=== PATIENT | male | born 1955 | race Hispanic/Latino ===

== ENCOUNTER 2018-08-30 14:58 | Emergency (ER) | payer OTHER ==
[~2018-08-30] VITALS: Ht 162.6 cm; Wt 90.7 kg
--- OUTSIDE RECORDS SUMMARY | 2018-08-30 15:01 | XMS REPORT | Clinical Summary ---
Author Author DONNY [facility] Address Unknown Phone Unavailable Care Team Providers Care Nutrition Services Associate Name Role Phone Pcp, No PCP Unavailable Allergies No Known Allergies Medications End Date Status Medication Sig Dispensed Refills Start Date Active PROGRAF 1 mg Take 4 720 capsule 3 capsuleIndications: Liver capsules (4 8 replaced by transplant mg total) by ([facility]), Immunosuppression mouth 2 (two) ([facility]) times daily. Active magnesium oxide 500 mg Take 2,000 mg 0 Tab by mouth daily. Active mycophenolate (CELLCEPT) TAKE 2 120 capsule 5 250 mg CAPSULES BY 8 capsuleIndications: Liver MOUTH TWICE replaced by transplant DAILY ([facility]), Immunosuppression ([facility]) 06/14/2018 Discontinued magnesium oxide (MAG-OX) Take 800 mg 0 400 mg tablet by mouth 2 4 (two) times daily. 06/28/2018 Discontinued mycophenolate (CELLCEPT) Take 2 360 capsule 3 250 mg capsules (500 8 capsuleIndications: Liver mg total) by replaced by transplant mouth 2 (two) ([facility]), Immunosuppression times daily. ([facility]) 05/06/2018 Discontinued tacrolimus (PROGRAF) 1 MG Take 4 mg by 0 capsule mouth 2 (two) times daily. 06/14/2018 Discontinued tacrolimus (PROGRAF) 1 MG Take 4 720 capsule 3 capsule capsules (4 8 mg total) by mouth 2 (two) times daily. 06/18/2018 Discontinued magnesium oxide Take by 0 (MAG-OXIDE ORAL) mouth. Active Problems Problem Noted Date Screening for malignant neoplasm 05/06/2018 BMI 35.0-35.9,adult 05/19/2014 Elevated blood pressure 04/28/2013 Last Assessment & Plan: Controlled with medications. Ulcer of lower extremity 04/21/2013 Last Assessment & Plan: Most probably secondary to previous fluid overload/edema/venous stasis. It appears improved, no signs of infection. Continue local wound care for now. Hyperglycemia 04/14/2013 Last Assessment & Plan: Controlled blood sugars. Immunosuppression 04/07/2013 Last Assessment & Plan: On prograf maintenance. Will adjust dose according to level. Autoimmune hepatitis 03/30/2013 Overview: S/p OLT 03/28/13 L ast Assessment & Plan: The patient with a history of AIH, no evidence of recurrence at this time. We will continue to follow LFTs for any evidence of recurrence and will alter meds as needed. 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 Encounters Care Team Description Date Type Specialty 08/18/2018 Hospital Encounter Chapito Gallagher MD Liver replaced by transplant (HCC); Immunosuppression (HCC) 06/28/2018 Refill Transplant Hepatology Cary Jain MD COLONOSCOPY 06/18/2018 Surgery Gastroenterology Jose Baird MD 06/18/2018 Anesthesia Gastroenterology Event Cary Jain MD Screening for malignant neoplasm (Primary Dx) 06/18/2018 Hospital Gastroenterology Encounter Resource, [facility] Phone 06/14/2018 Hospital Pre-Admission Testing Encounter Tia Reese Labs Only (LVM RE: LAB/RX RESULTS; NO MED CHANGES; REPEAT BLD WK X4 MTHS; 09/05/2018; LIVER CLINIC; GGT;) 05/07/2018 Telephone Transplant Hepatology Lesley Henry MD Status post liver transplantation (HCC) (Primary Dx); Immunosuppression (HCC); Autoimmune hepatitis (HCC); Obesity (BMI 30-39.9); Screening for malignant neoplasm 05/06/2018 Follow-Up Transplant HepatLesley Jaquez MD Autoimmune hepatitis (HCC); Immunosuppression (HCC); Status post liver transplantation (HCC) 05/06/2018 Orders Only Transplant HepatLesley Jaquez MD 05/06/2018 Abstract Transplant Hepatology Tia Reese 05/06/2018 Documentation Transplant Hepatology Warren, Kylah M, pot runner Refill 04/12/2018 Telephone Transplant Hepatology Tia Reese Labs Only (SPK W PTN RE: LABA/RX RESULTS; NO MED CHANGES; REPEAT BLD WK X4 MTHS; 05/06/2018; LIVER CLINIC; GGT;) 03/08/2018 Telephone Transplant Hepatology Gustavo Pruitt MD Autoimmune hepatitis (HCC); Immunosuppression (HCC); Status post liver transplantation (HCC) 03/06/2018 Orders Only Transplant Hepatology Tia Reese Labs Only (SPK W PTN RE:LAB/RX RESULTS; NO MED CHANGES; REPEAT BLD WK X3 MTHS; 03/05/2018; CLINIC; GGT;) 12/04/2017 Telephone Transplant Hepatology Tia Reese 12/04/2017 Documentation Transplant Hepatology Gustavo Pruitt MD Autoimmune hepatitis (HCC); Immunosuppression (HCC); Status post liver transplantation (HCC) 12/03/2017 Orders Only Transplant Hepatology Kylah Warren RN 11/15/2017 Abstract Transplant Hepatology Gustavo Pruitt MD Autoimmune hepatitis (HCC); Immunosuppression (HCC); Status post liver transplantation (HCC) 09/03/2017 Orders Only Transplant Hepatology after 08/29/2017 Immunizations Name Dates Previously Given Next Due Influenza TIV (IM) 05/19/2014 Influenza Three-TIV PF 04/09/2015 4+YRS Pneumococcal 01/21/2014 Polysaccharide (Pneumovax) Tdap 01/21/2014 Family History Medical History Relation Name Comments Diabetes Brother Heart disease Father Prostate cancer Father Diabetes Mother Hypertension Mother Cancer Sister Relation Name Status Comments Brother Father Mother Sister Social History Date Tobacco Use Types Packs/Day Years Used Quit: 02/16/2013 Former Smoker Cigarettes 2 45 Smokeless Tobacco: Never Used Tobacco Cessation: Counseling Given: Yes Alcohol Use Drinks/Week oz/Week Comments No Stopped February 2013 Sex Assigned at Date Recorded Not on file Industry Job Start Date Occupation Not on file Not on file Not on file Travel End Travel History Travel Start No recent travel history available. Last Filed Vital Signs Time Taken Vital Sign Reading 06/18/2018 10:15 AM LOTUS NOTES DEVELOPER Blood Pressure 143/94 06/18/2018 10:00 AM LOTUS NOTES DEVELOPER Pulse 71 06/18/2018 10:15 AM LOTUS NOTES DEVELOPER Temperature 37 C (98.6 F) 06/18/2018 10:15 AM LOTUS NOTES DEVELOPER Respiratory Rate 18 06/18/2018 10:00 AM LOTUS NOTES DEVELOPER Oxygen Saturation 97% - Inhaled Oxygen - Concentration 06/18/2018 8:27 AM LOTUS NOTES DEVELOPER Weight 96.8 kg (213 lb 4.8 oz) 06/18/2018 8:27 AM LOTUS NOTES DEVELOPER Height 162.6 cm (5' 4") 06/18/2018 8:27 AM LOTUS NOTES DEVELOPER Body Mass Index 36.61 Plan of Treatment Care Team Description Date Type Specialty 09/05/2018 Orders Only Transplant Hepatology Health Maintenance Due Date Last Done Comments INFLUENZA VACCINE 04/22/2018 04/09/2015 Procedures Comments Procedure Name Priority Date/Time Associated Diagnosis COLONOSCOPY 06/18/2018 Colon cancer screening 10:00 AM LOTUS NOTES DEVELOPER REPORT OF PROCEDURE - 06/18/2018 ENDOSCOPY URL 9:59 AM LOTUS NOTES DEVELOPER CBC W/PLT COUNT & AUTO Routine 05/06/2018 Autoimmune hepatitis DIFFERENTIAL 6:46 AM CDT (HCC) Immunosuppression (HCC) Status post liver transplantation (HCC) CBC W/PLT COUNT & AUTO Routine 05/06/2018 Autoimmune hepatitis DIFFERENTIAL 6:46 AM CDT (HCC) Immunosuppression (HCC) Status post liver transplantation (HCC) TACROLIMUS LEVEL Routine 05/06/2018 Autoimmune hepatitis 6:45 AM CDT (HCC) Immunosuppression (HCC) Status post liver transplantation (HCC) MAGNESIUM Routine 05/06/2018 Autoimmune hepatitis 6:45 AM CDT (HCC) Immunosuppression (HCC) Status post liver transplantation (HCC) COMPREHENSIVE METABOLIC Routine 05/06/2018 Autoimmune hepatitis PANEL 6:45 AM CDT (HCC) Immunosuppression (HCC) Status post liver transplantation (HCC) BILIRUBIN, DIRECT Routine 05/06/2018 Autoimmune hepatitis 6:45 AM CDT (HCC) Immunosuppression (HCC) Status post liver transplantation (HCC) CBC W/PLT COUNT & AUTO Routine 03/06/2018 Autoimmune hepatitis DIFFERENTIAL 6:47 AM CDT (HCC) Immunosuppression (HCC) Status post liver transplantation (HCC) TACROLIMUS LEVEL Routine 03/06/2018 Autoimmune hepatitis 6:47 AM CDT (HCC) Immunosuppression (HCC) Status post liver transplantation (HCC) MAGNESIUM Routine 03/06/2018 Autoimmune hepatitis 6:47 AM CDT (HCC) Immunosuppression (HCC) Status post liver transplantation (HCC) COMPREHENSIVE METABOLIC Routine 03/06/2018 Autoimmune hepatitis PANEL 6:47 AM CDT (HCC) Immunosuppression (HCC) Status post liver transplantation (HCC) CBC W/PLT COUNT & AUTO Routine 03/06/2018 Autoimmune hepatitis DIFFERENTIAL 6:47 AM CDT (HCC) Immunosuppression (HCC) Status post liver transplantation (HCC) BILIRUBIN, DIRECT Routine 03/06/2018 Autoimmune hepatitis 6:47 AM CDT (HCC) Immunosuppression (HCC) Status post liver transplantation (HCC) CBC W/PLT COUNT & AUTO Routine 12/03/2017 Autoimmune hepatitis DIFFERENTIAL 7:02 AM CDT (HCC) Immunosuppression (HCC) Status post liver transplantation (HCC) TACROLIMUS LEVEL Routine 12/03/2017 Autoimmune hepatitis 7:02 AM CDT (HCC) Immunosuppression (HCC) Status post liver transplantation (HCC) MAGNESIUM Routine 12/03/2017 Autoimmune hepatitis 7:02 AM CDT (HCC) Immunosuppression (HCC) Status post liver transplantation (HCC) COMPREHENSIVE METABOLIC Routine 12/03/2017 Autoimmune hepatitis PANEL 7:02 AM CDT (HCC) Immunosuppression (HCC) Status post liver transplantation (HCC) CBC W/PLT COUNT & AUTO Routine 12/03/2017 Autoimmune hepatitis DIFFERENTIAL 7:02 AM CDT (HCC) Immunosuppression (HCC) Status post liver transplantation (HCC) BILIRUBIN, DIRECT Routine 12/03/2017 Autoimmune hepatitis 7:02 AM CDT (HCC) Immunosuppression (HCC) Status post liver transplantation (HCC) CBC W/PLT COUNT & AUTO Routine 09/03/2017 Autoimmune hepatitis DIFFERENTIAL 6:59 AM LOTUS NOTES DEVELOPER (HCC) Immunosuppression (HCC) Status post liver transplantation (HCC) TACROLIMUS LEVEL Routine 09/03/2017 Autoimmune hepatitis 6:59 AM LOTUS NOTES DEVELOPER (HCC) Immunosuppression (HCC) Status post liver transplantation (HCC) MAGNESIUM Routine 09/03/2017 Autoimmune hepatitis 6:59 AM LOTUS NOTES DEVELOPER (HCC) Immunosuppression (HCC) Status post liver transplantation (HCC) COMPREHENSIVE METABOLIC Routine 09/03/2017 Autoimmune hepatitis PANEL 6:59 AM LOTUS NOTES DEVELOPER (HCC) Immunosuppression (HCC) Status post liver transplantation (HCC) CBC W/PLT COUNT & AUTO Routine 09/03/2017 Autoimmune hepatitis DIFFERENTIAL 6:59 AM LOTUS NOTES DEVELOPER (HCC) Immunosuppression (HCC) Status post liver transplantation (HCC) BILIRUBIN, DIRECT Routine 09/03/2017 Autoimmune hepatitis 6:59 AM LOTUS NOTES DEVELOPER (HCC) Immunosuppression (HCC) Status post liver transplantation (HCC) after 08/29/2017 Results * REPORT OF PROCEDURE - ENDOSCOPY URL (06/18/2018 9:59 AM LOTUS NOTES DEVELOPER) Narrative Performed At * CBC with platelet count + automated diff (05/06/2018 6:46 AM CDT) Only the most recent of 4 results within the time period is included. WBC 6.5 3.5 - 10.5 K/L [facility] RBC 5.11 4.63 - 6.08 M/L [facility] Hemoglobin 14.8 13.7 - 17.5 GM/DL [facility] Hematocrit 46.9 40.1 - 51.0 % [facility] MCV 91.8 79.0 - 92.2 fL [facility] MCH 29.0 25.7 - 32.2 pg [facility] MCHC 31.6 (L) 32.3 - 36.5 GM/DL [facility] RDW 14.3 11.6 - 14.4 % [facility] Platelets 282 150 - 450 K/CU MM [facility] MPV 10.7 9.4 - 12.4 fL [facility] nRBC 0 0 - 0 /100 WBC [facility] % Neutros 60 % [facility] % Lymphs 30 % [facility] % Monos 8 % [facility] % Eos 1 % [facility] % Baso 1 % [facility] # Neutros 3.89 1.78 - 5.38 K/L [facility] # Lymphs 1.92 1.32 - 3.57 K/L [facility] # Monos 0.54 0.30 - 0.82 K/L [facility] # Eos 0.06 0.04 - 0.54 K/L [facility] # Baso 0.07 0.01 - 0.08 K/L [facility] Immature 1 0 - 1 % [facility] Granulocytes-[facility] Specimen Blood Performing Organization Address City/[facility]/Zipcode Phone Number [address] * Tacrolimus level (05/06/2018 6:45 AM CDT) Only the most recent of 4 results within the time period is included. Tacrolimus Lvl 7.7 (L) 10.0 - 20.0 ng/mL [facility] Specimen Blood Performing Organization Address City/State/Zipcode Phone Number [address] [address] [phone] [place] [address] * Magnesium (05/06/2018 6:45 AM CDT) Only the most recent of 4 results within the time period is included. Magnesium 1.6 1.6 - 2.6 mg/dL [facility] Specimen Blood Performing Organization Address City/State/Zipcode Phone Number [address] [address] [facility] * Bilirubin, direct (05/06/2018 6:45 AM CDT) Only the most recent of 4 results within the time period is included. Bilirubin, Direct 0.2 0.1 - 0.5 mg/dL [facility] Specimen Blood Performing Organization Address City/State/Zipcode Phone Number [facility] [address] [place] [address] [facility] * Comprehensive metabolic panel (05/06/2018 6:45 AM CDT) Only the most recent of 4 results within the time period is included. Protein, Total 8.4 (H) 6.0 - 8.3 gm/dL [facility] Albumin 4.5 3.5 - 5.0 g/dL [facility] Alkaline Phosphatase 74 40 - 150 U/L [facility] Total Bilirubin 0.5 0.2 - 1.2 mg/dL [facility] Sodium 138 136 - 145 meq/L [facility] Potassium 4.1 3.5 - 5.1 meq/L [facility] Chloride 105 98 - 107 meq/L [facility] CO2 23 22 - 29 meq/L [facility] BUN 15 7 - 21 mg/dL [facility] Creatinine 1.09 0.57 - 1.25 mg/dL [facility] Glucose 96 70 - 105 mg/dL [facility] Calcium 10.0 8.4 - 10.2 mg/dL [facility] AST 23 5 - 34 U/L [facility] ALT 39 6 - 55 U/L [facility] EGFR 68Comment: ESTIMATED GFR IS mL/min/1.[address] [facility] NOT ACCURATE CREATININE [facility] CLEARANCE IN PREDICTING GLOMERULAR FILTRATION RATE. ESTIMATED GFR IS NOT APPLICABLE FOR DIALYSIS PATIENTS. Specimen Blood Performing Organization Address City/State/Zipcode Phone Number [facility] [address] [place] [address] [facility] after 08/29/2017 Insurance Payer Benefit Subscriber ID Type Phone Address Plan / Group [employer] - MGD CARE CIGNA xxxxxxxxxxx HMO/POS HMO/POS/OP EN ACCESS Advance Directives For more information, please contact: [place] [id number] [place] [address] Date Inactivated Comments Code Status Date Activated 03/28/2013 11:02 AM All possible means of support, including: cardiac massage, mechanical ventilation, and defibrillation will be used to support life. Code ONE 03/19/2013 12:29 AM
--- OUTSIDE RECORDS SUMMARY | 2018-08-30 15:01 | XMS REPORT | Clinical Summary ---
Author Author [facility] Address Unknown Phone Unavailable Care Team Providers Care [facility]ilion Cutter Name Role Phone Roxanne Arias MD PCP Allergies No Known Allergies Medications End Date Status Medication Sig Dispensed Refills Start Date Active PROGRAF 1 mg capsule 0 7 Active mycophenolate (CELLCEPT) 0 250 mg capsule 7 Active magnesium 30 mg tablet Take 30 mg by 0 mouth 2 (two) times a day. 10/15/2017 Discontinued ergocalciferol (VITAMIN Take 50,000 0 D2) 50,000 unit capsule Units by mouth once a week. Active Problems Problem Noted Date Vitamin D deficiency 10/15/2017 Overview: Now on vit D OTC. L ast Assessment & Plan: Recheck at annual and get bone density given immunosuppression. Pulmonary nodule 04/13/2017 Overview: Liver team told patient no longer ordering imaging and per PCP; had CT chest showing IMPRESSION: Mild changes of COPD. 3.4 mm x 1.7 mm benign-appearing pleural parenchymal nodule right upper lobe. Mild benign bilateral pleural thickening. Atherosclerosis No incidental findings - no further evaluation needed. L ast Assessment & Plan: Repeat CT chest and refer to pulmonary if necessary. Borderline diabetes mellitus 01/21/2014 Overview: Last A1c was 6.1 down to 5.9 Weight is elevated; not controlling diet well L ast Assessment & Plan: Recheck in 6 months - focus on diet and exercise. White coat syndrome with high blood pressure but without hypertension 04/28/2013 Overview: BP elevated at visit however patient brought log of ambulatory bp readings which are all normal in the 110/70's. He has no symptoms of chest pain or SOB. BP in office initially always high. Patient very nervous today. Continues to check at home and highest reading he gets is 130/80. Rechecked bp manually -- 135/80 (initial bp 157/102) L ast Assessment & Plan: Continue to keep log and monitor. Immunosuppression 04/07/2013 Overview: On prograf maintenance. Per Hepatology. Autoimmune hepatitis 03/30/2013 Overview: S/p OLT 03/28/13 The patient with a history of AIH, no evidence of recurrence at this time. [facility] Hepatology managing immunosuppresion. History of liver transplant 03/28/2013 Overview: Excellent graft function per transplant team; patient requesting u/s with dopplers for liver surveillance. No complaints. L ast Assessment & Plan: U/s ordered for surveillance. Encounters Care Team Description Date Type Specialty Araseli Vieyra MA 08/29/2018 Telephone Access Roxanne Arias MD 08/19/2018 Telephone Family Medicine Jamin Kong MD BPH with obstruction/lower urinary tract symptoms (Primary Dx) 05/22/2018 Office Visit Urology Roxanne Arias MD Annual physical exam (Primary Dx); Need for influenza vaccination; Pulmonary nodule; Screen for colon cancer; Encounter for vision screening 04/17/2018 Office Visit Internal Medicine Jamin Kong MD Erectile dysfunction, unspecified erectile dysfunction type (Primary Dx) 10/24/2017 Office Visit Urology Roxanne Arias MD Borderline diabetes mellitus (Primary Dx); White coat syndrome with high blood pressure but without hypertension; Vitamin D deficiency 10/15/2017 Office Visit Internal Medicine after 08/29/2017 Immunizations Name Dates Previously Given Next Due FLUBLOK QUAD PF 04/17/2018 Influenza (IM) 04/09/2015 Preservative Free Influenza Trivalent 05/19/2014 Pneumococcal 01/21/2014 Polysaccharide Tdap 01/21/2014 Family History Medical History Relation Name Comments Heart disease Father Prostate cancer Father Diabetes Mother Hypertension Mother Relation Name Status Comments Father Mother Social History Date Tobacco Use Types Packs/Day Years Used Former Smoker Smokeless Tobacco: Never Used Alcohol Use Drinks/Week oz/Week Comments No Sex Assigned at Date Recorded Not on file Industry Job Start Date Occupation Not on file Not on file Not on file Travel End Travel History Travel Start No recent travel history available. Last Filed Vital Signs Time Taken Vital Sign Reading 04/17/2018 8:22 AM CDT Blood Pressure 150/100 04/17/2018 8:22 AM CDT Pulse 72 - Temperature - 04/17/2018 8:22 AM CDT Respiratory Rate 16 04/17/2018 8:22 AM CDT Oxygen Saturation 97% - Inhaled Oxygen - Concentration 04/17/2018 8:22 AM CDT Weight 97.1 kg (214 lb) 04/17/2018 8:22 AM CDT Height 162.6 cm (5' 4") 04/17/2018 8:22 AM CDT Body Mass Index 36.73 Plan of Treatment Care Team Description Date Type Specialty Roxanne Arias MD [address] [facility] [address] [place] [address] 09/02/2018 Office Visit Internal Medicine Roxanne Arias MD [address] [facility] [address] [place] [address] 10/16/2018 Office Visit Internal Medicine Jamin Kong MD [address] [facility] [address] [place] [address] 05/21/2019 Office Visit Urology Health Maintenance Due Date Last Done Comments COLON CANCER SCREENING 2004 SHINGLES VACCINES ( of 2004 2) INFLUENZA VACCINE Completed 04/17/2018, 05/19/2014 Procedures Comments Procedure Name Priority Date/Time Associated Diagnosis PSA, TOTAL AND FREE Routine 05/22/2018 BPH with 11:07 AM CDT obstruction/lower urinary tract symptoms ECG 12-LEAD Routine 04/17/2018 Annual physical exam 7:39 AM CDT after 08/29/2017 Results * PSA, total and free (05/22/2018 11:07 AM CDT) PSA 4.1 (H) 0.0 - 4.0 ng/mL [facility] Comment: Felisa ECLIA methodology. According to the [employer], Serum PSA should decrease and remain at undetectable levels after radical prostatectomy. The AUA defines biochemical recurrence as an initial PSA value 0.2 ng/mL or greater followed by a subsequent confirmatory PSA value 0.2 ng/mL or greater. Values obtained with different assay methods or kits cannot be used interchangeably. Results cannot be interpreted as absolute evidence of the presence or absence of malignant disease. PSA, free 1.16Comment: Felisa ECLIA N/A ng/mL [facility] methodology. PSA, free percent 28.3 % [facility] Comment: The table below lists the probability of prostate cancer for men with non-suspicious ANNE MARIE results and total PSA between 4 and 10 ng/mL, by patient age (Dhruv et al, ISIAH 1998, 279:1542). % Free PSA 50-64 yr65-75 yr 0.00-10.00% 56% 55% 10.01-15.00%24 % 35% 15.01-20.00%17 % 23% 20.01-25.00%10 % 20% >25.00% 5% 9% Please note:Dhruv et al did not make specific re commendations regarding the use of pe rcent free PSA for any other population of men. Specimen Blood Narrative Performed At Performed at: - [facility] [address] [place], [id number] Marine Operations Coordinator: Ayan Escalona MD, Phone:[phone] Performing Organization Address City/[facility] Phone Number [facility] * ECG 12 lead (04/17/2018 7:39 AM CDT) Ventricular rate 63 [facility] Atrial rate 63 [facility] SD interval 146 [facility] QRSD interval 88 [facility] QT interval 392 [facility] QTC interval 401 [facility] P axis 1 20 [facility] QRS axis 1 46 [facility] T wave axis 47 [facility] EKG impression Normal sinus rhythm-Normal [facility] ECG-No previous ECGs available- Performing Organization Address [facility] Phone Number [facility] [address] [place] [address] after 08/29/2017 Insurance Payer Benefit Subscriber ID Type Phone Address Plan / Group PADMINI [place] OPEN xxxxxxxxxxx HMO ACCESS/NET WORK Advance Directives Patient has advance care planning documents on file. For more information, pleas e contact: Stiven Bowers [address] [place] [address]
--- OUTSIDE RECORDS SUMMARY | 2018-08-30 15:02 | XMS REPORT ---
[facility] Address Unknown Phone Unavailable Care Team Providers Care Meter Changes Records Clerk Name Role Phone MIMIMIGUEL ANGEL EUCEDATRISTON LEYVA Unavailable Unavailable SAMARA RAMOS Unavailable Unavailable Edward SANCHEZ Unavailable Unavailable JEREMIAH GUAMAN Unavailable Unavailable Payers Payer Name Policy Type Policy Number Effective Date Expiration Date Problems This patient has no known problems. Allergies, Adverse Reactions, Alerts Allergy Name Allergy Type Status Severity Reaction(s) Onset Date Inactive Date Treating Clinician Comments No Known Allergies DA Active U 2018-08-23 00:00:00 No Known Allergies DA Active U 2018-08-18 00:00:00 Medications This patient has no known medications. Results Test Description Test Time Test Comments Text Results Atomic Results Result Comments GLUBED 2018-08-20 17:05:00 GLUBED (test code=GLUBED) 112 mg/dL 74-106 Performed by certified tin whiz machine operator at [facility] [id number] 17:05:00* Test Item Value Reference Range Comments GLUBED (test code=GLUBED) 92 mg/dL 74-106 Performed by certified tin whiz machine operator at [facility] [id number] 17:05:00* Test Item Value Reference Range Comments GLUBED (test code=GLUBED) 60 mg/dL 74-106 Performed by certified tin whiz machine operator at [facility] BASIC METABOLIC [id number] 07:12:00* Test Item Value Reference Range Comments SODIUM (test code=NA) 144 mmol/L 136-145 POTASSIUM (test code=K) 3.5 mmol/L 3.5-5.1 CHLORIDE (test code=CL) 112.0 mmol/L 98-107 CARBON DIOXIDE (test code=CO2) 23.0 mmol/L 21-32 ANION GAP (test code=GAP) 12.5 10-20 GLUCOSE (test code=GLU) 88 mg/dL 74-106 BLOOD UREA NITROGEN (test code=BUN) 9 mg/dL 7-18 GLOMERULAR FILTRATION RATE (test code=GFR) > 60 mL/min >=60 Estimated GFR by using Modified MDRD formula.Chronic kidney disease is defined as either kidney damageor GFR <60 mL/min/1.73 m2 for >3 months. CREATININE (test code=CREAT) 0.90 mg/dL 0.7-1.3 BUN/CREATININE RATIO (test code=BUN/CREA) 10.1 10-20 CALCIUM (test code=CA) 8.4 mg/dL 8.5-10.1 CBC W/AUTO [id number] 07:01:00* Test Item Value Reference Range Comments WHITE BLOOD CELL (test code=WBC) 7.4 K/mm3 4.5-12.5 RED BLOOD CELL (test code=RBC) 4.20 mill/mm3 4.0-5.8 HEMOGLOBIN (test code=HGB) 12.2 gram/dL 13.0-17.5 HEMATOCRIT (test code=HCT) 39.7 % 42.0-52.0 MEAN CELL VOLUME (test code=MCV) 94.5 fL 80-98 MEAN CELL HGB (test code=MCH) 29.0 picogram 27.0-33.0 MEAN CELL HGB CONCETRATION (test code=MCHC) 30.7 gram/dL 33.0-36.0 RED CELL DISTRIBUTION WIDTH (test code=RDW) 14.8 % 11.6-16.2 RED CELL DISTRIBUTION WIDTH SD (test code=RDW-SD) 51.8 fL 37.0-51.0 PLATELET COUNT (test code=PLT) 218 K/mm3 150-450 MEAN PLATELET VOLUME (test code=MPV) 10.5 fL 6.7-11.0 NEUTROPHIL % (test code=NT%) 65.5 % 39.0-69.0 IMMATURE GRANULOCYTE % (test code=IG%) 0.3 % 0.0-5.0 LYMPHOCYTE % (test code=LY%) 24.7 % 25.0-55.0 MONOCYTE % (test code=MO%) 8.6 % 0.0-10.0 EOSINOPHIL % (test code=EO%) 0.5 % 0.0-5.0 BASOPHIL % (test code=BA%) 0.4 % 0.0-1.0 NUCLEATED RBC % (test code=NRBC%) 0.0 % 0-0 NEUTROPHIL # (test code=NT#) 4.86 K/mm3 1.8-7.7 IMMATURE GRANULOCYTE # (test code=IG#) 0.02 x10 3/uL 0-0.03 LYMPHOCYTE # (test code=LY#) 1.83 K/mm3 1.0-5.0 MONOCYTE # (test code=MO#) 0.64 K/mm3 0-0.8 EOSINOPHIL # (test code=EO#) 0.04 K/mm3 0.0-0.5 BASOPHIL # (test code=BA#) 0.03 K/mm3 0.0-0.2 NUCLEATED RBC # (test code=NRBC#) 0.00 K/mm3 0.0-0.1 MANUAL DIFF REQUIRED (test code=MDIFF) NO - CT HEAD/BRAIN W/O [id number] 06:59:00 Name: SOL MONTEMAYOR [facility] : 1955 Age/S: 62 / M [address] [facility] Unit #: [id number] Loc: [place] [address] Phys: Juliano Powell MD Acct: [id number] Dis Date: Status: ADM IN PHONE #: [phone] Exam Date: 08/20/2018 0440 FAX #: [phone] Reason: f/u hemorrhage EXAMS: CPT CODE: [id number] CT HEAD/BRAIN W/O CONT 09445 REASON FOR EXAM: f/u hemorrhage EXAM ORDER DATE: 08/20/2018 5:00 AM Ordering M.DMaddie: Juliano Powell MD PROCEDURE: - CT HEAD/BRAIN W/O CONT COMPARISON: 08/19/2018 FINDINGS: CT images of the brain were obtained without IV contrast. Dose reduction techniques were applied. Slight interval decrease in the left-sided parenchymal hemorrhages involving the left temporal and left parietal lobes. No evidence of midline shift or mass effect. No evidence of new hemorrhage IMPRESSION: Slight interval decrease in the size of the left-sided intraparenchymal hemorrhage. at 0659 Reported and signed by: Eliel Dejesus M.D. CC: Joey Schroeder MD; Juliano Powell MD Technologist:ALICIA CASTRO RT CTDI: DLP: Trnscb Date/Time: 08/20/2018 (0659) [email or web address] Orig Print D/T: S: 08/20/2018 (0702) CTDI: DLP: PAGE 1 Signed Report BASIC METABOLIC PANEL 2018-08-20 06:57:00* Test Item Value Reference Range Comments SODIUM (test code=NA) 144 mmol/L 136-145 POTASSIUM (test code=K) 3.5 mmol/L 3.5-5.1 CHLORIDE (test code=CL) 112.0 mmol/L 98-107 CARBON DIOXIDE (test code=CO2) mmol/L 21-32 ANION GAP (test code=GAP) 10-20 GLUCOSE (test code=GLU) mg/dL 74-106 BLOOD UREA NITROGEN (test code=BUN) mg/dL 7-18 GLOMERULAR FILTRATION RATE (test code=GFR) mL/min >=60 CREATININE (test code=CREAT) mg/dL 0.7-1.3 BUN/CREATININE RATIO (test code=BUN/CREA) 10-20 CALCIUM (test code=CA) mg/dL 8.5-10.1 ARTERIAL BLOOD [id number] 08:25:00* Test Item Value Reference Range Comments ARTERIAL BLOOD GAS PH (test code=PHA) 7.37 7.35-7.45 ARTERIAL BLOOD GAS PCO2 (test code=PCO2A) 37.5 mm Hg 35-45 ARTERIAL BLOOD GAS PO2 (test code=PO2A) 404.6 mmHg 80-100 BICARBONATE TOTAL HCO3 (test code=HCO3) 21.3 mmol/L 23.0-27.0 BASE EXCESS (test code=MIRANDA) -3.4 mmol/L -3.0-5.0 Results called to and read back by dr landaverde 08:22 - 08/19/2018; by kendy ABG O2 SATURATION (test code=SATA) 99.1 % 90.0-98.0 ABG TYPE (test code=TYPEA) Arterial FIO2 (test code=FIO2A) 40.0 ABG VENT MODE (test code=MODEA) CPAP ABG VENT RESP RATE (test code=RRA) 18.0 per min ABG PRESSURE SUPPORT (test code=PSABG) 8 cmH2O ABG SITE (test code=SITEA) Rt BRACHIAL ARTERY HEMATOCRIT (test code=HCT/ABG) 40 % 42-52 TOTAL HGB (test code=THB) 13.5 gram/dL 13.0-17.5 HGB O2 SAT (test code=HBOSAT) 98.3 % 94.00-98.00 CARBOXYHEMOGLOBIN (test code=HOHGBT) 0.3 %totalHg 0.5-1.5 Results called to and read back by dr landaverde 08:22 - 08/19/2018; by kendy METHEMOGLOBIN (test code=METHGB) 0.5 % 0.0-1.50 O2 CONTENT (test code=O2CT) 19.7 % vol 18.0-22.0 ARTERIAL BLOOD [id number] 07:45:00* Test Item Value Reference Range Comments ARTERIAL BLOOD GAS PH (test code=PHA) 7.40 7.35-7.45 ARTERIAL BLOOD GAS PCO2 (test code=PCO2A) 35.3 mm Hg 35-45 ARTERIAL BLOOD GAS PO2 (test code=PO2A) 142.3 mmHg 80-100 BICARBONATE TOTAL HCO3 (test code=HCO3) 21.6 mmol/L 23.0-27.0 BASE EXCESS (test code=MIRANDA) -2.5 mmol/L -3.0-5.0 ABG O2 SATURATION (test code=SATA) 98.4 % 90.0-98.0 ABG TYPE (test code=TYPEA) Arterial FIO2 (test code=FIO2A) 50.0 ABG VENT MODE (test code=MODEA) Assist Control ABG VENT RESP RATE (test code=RRA) 16.0 per min ABG TIDAL VOLUME (test code=TVA) 500.0 mL ABG PEEP (test code=PEEPA) 5.0 cmH2O ABG SITE (test code=SITEA) Lt RADIAL ARTERY MODIFIED ALLENS (test code=MODALL) Yes CHECK PERFORMED HEMATOCRIT (test code=HCT/ABG) 40 % 42-52 TOTAL HGB (test code=THB) 13.6 gram/dL 13.0-17.5 HGB O2 SAT (test code=HBOSAT) 97.6 % 94.00-98.00 CARBOXYHEMOGLOBIN (test code=HOHGBT) 0.3 %totalHg 0.5-1.5 Results called to and read back by narendra 05:15 - 08/19/2018; by Ilene Dickens METHEMOGLOBIN (test code=METHGB) 0.5 % 0.0-1.50 O2 CONTENT (test code=O2CT) 18.9 % vol 18.0-22.0 - CT HEAD/BRAIN W/O [id number] 07:15:00 Name: SOL MONTEMAYOR [facility] : 1955 Age/S: 62 / M [address] [facility] Unit #: [id number] Loc: [place] [address] Phys: Mami Vegas MD Acct: [id number] Dis Date: Status: ADM IN PHONE #: [phone] Exam Date: 08/19/2018 0440 FAX #: [phone] Reason: FOLLOW UP TO POST HEMORRHAGE EXAMS: CPT CODE: [id number] CT HEAD/BRAIN W/O CONT 51426 REASON FOR EXAM: FOLLOW UP TO POST HEMORRHAGE EXAM ORDER DATE: 08/19/2018 5:00 AM Ordering M.DMaddie: Mami Vegas MD PROCEDURE: - CT HEAD/BRAIN W/O CONT COMPARISON: 08/18/2018 FINDINGS: CT images of the brain were obtained without IV contrast. Dose reduction techniques were applied. Stable appearance of the left sided intraparenchymal hemorrhage within the left temporal and parietal lobes. The degree previously seen intraparenchymal hemorrhages are grossly unchanged with the largest located in the inferior left temporal lobe measuring 2.2 cm. No evidence of new hemorrhage. No evidence of midline shifting or mass effect IMPRESSION: Stable appearance of the left-sided temporoparietal multifocal intraparenchymal hemorrhages. at 0715 Reported and signed by: Eliel Dejesus M.D. CC: Mami Vegas MD; Joey Schroeder MD Technologist:BROWN GASTON CTDI: DLP: Trnscb Date/Time: 08/19/2018 (0715) OrvilleL Orig Print D/T: S: 08/19/2018 (0718) CTDI: DLP: PAGE 1 Signed Report COMPREHENSIVE METABOLIC [id number] 06:58:00* Test Item Value Reference Range Comments SODIUM (test code=NA) 143 mmol/L 136-145 POTASSIUM (test code=K) 3.4 mmol/L 3.5-5.1 CHLORIDE (test code=CL) 111.0 mmol/L 98-107 CARBON DIOXIDE (test code=CO2) 23.0 mmol/L 21-32 ANION GAP (test code=GAP) 12.4 10-20 GLUCOSE (test code=GLU) 93 mg/dL 74-106 BLOOD UREA NITROGEN (test code=BUN) 11 mg/dL 7-18 GLOMERULAR FILTRATION RATE (test code=GFR) > 60 mL/min >=60 Estimated GFR by using Modified MDRD formula.Chronic kidney disease is defined as either kidney damageor GFR <60 mL/min/1.73 m2 for >3 months. CREATININE (test code=CREAT) 1.10 mg/dL 0.7-1.3 BUN/CREATININE RATIO (test code=BUN/CREA) 9.7 10-20 TOTAL PROTEIN (test code=PROT) 7.4 gram/dL 6.4-8.2 ALBUMIN (test code=ALB) 3.5 g/dL 3.4-5.0 GLOBULIN (test code=GLOB) 3.9 gram/dL 2.7-4.2 ALBUMIN/GLOBULIN RATIO (test code=A/G) 0.9 0.75-1.50 CALCIUM (test code=CA) 8.4 mg/dL 8.5-10.1 BILIRUBIN TOTAL (test code=BILT) 0.40 mg/dL 0.0-1.0 SGOT/AST (test code=AST) 25 IUnit/L 15-37 SGPT/ALT (test code=ALT) 35 IUnit/L 12-78 ALKALINE PHOSPHATASE TOTAL (test code=ALKP) 70 IUnit/L 45-117 Note change in reference range due to change in reagent. LIPID PROFILE (CORONARY RISK)2018-08-19 06:58:00* Test Item Value Reference Range Comments TRIGLYCERIDES (test code=TRIG) 168 mg/dL 20-150 CHOLESTEROL (test code=CHOL) 144 mg/dL 0-200 CHOLESTEROL/HDL RATIO (test code=CHOLHDL) 4.0 RATIO 0-4.9 RISK ASSOCIATED WITH CHOL/HDL RATIOS: Risk Male Female1/2 AVERAGE 3.43 3.27AVERAGE 4.97 4.442X AVERAGE 9.55 7.053X AVERAGE 23.39 11.04 REFERENCE VALUE IS RELATED TO RISK LEVELS ASRECOMMENDED BY THE ALPHONSO. HEART, LUNG, AND BLOOD INST. HDL CHOLESTEROL (test code=HDL) 34 mg/dL 40-60 LIPOPROTEIN LDL (test code=LDL) 95 mg/dL 100-129 Reference Interval: mg/dL mmol/L Optimal <100 <2.6Near/above optimal 100-129 2.6- 3.3Borderline High 130-159 3.4-4.1High 160-189 4.1-4.9Very High >=190 >=4.9=========This LDL result is a direct measurement.========= [id number] 06:58:00* Test Item Value Reference Range Comments PHOSPHORUS (test code=PHOS) 2.6 mg/dL 2.5-4.9 [id number] 06:58:00* Test Item Value Reference Range Comments MAGNESIUM (test code=MAG) 2.0 mg/dL 1.8-2.4 - XR CHEST 1 [id number] 06:56:00 FAX: Joey Schroeder MD [place]: B St: ADM FAX: Carol Rodrigues MD [phone] Name: SOL MONTEMAYOR [facility] : 1955 Age/S: 62/M [address] [facility] Unit #: [id number] Loc: [address] [address] Phys: Carol Rodrigues MD Acct: [id number] Dis Date: Status: ADM IN PHONE #: [phone] Exam Date: 08/19/2018 0545 FAX #: [phone] Reason: CHEST PAIN EXAMS: CPT CODE: [id number] XR CHEST 1 V 10646 REASON FOR EXAM: CHEST PAIN EXAM ORDER DATE: 08/19/2018 6:00 AM Ordering Walter: Carol Rodrigues MD PROCEDURE: - XR CHEST 1 V COMPARISON: 08/18/2018 FINDINGS: Portable AP frontal view of the chest obtained at 5:46 AM shows the heart size is minimally enlarged. Stable appearance of the ET tube. Pulmonary vasculatures are unremarkable. The OG tube is in the stomach IMPRESSION: Patchy atelectasis at the left base. at 0656 Reported and signed by: Eliel Dejesus M.D. CC: Joey Schroeder MD; Carol Rodrigues MD Technologist: FABRICIO Fernandez Trnutrd Date/Time/By: 08/19/2018 (0656) : By: Jaskaran Orig Print D/T: S: 08/19/2018 (0659) PAGE 1 Signed Report COMPREHENSIVE METABOLIC [id number] 06:51:00* Test Item Value Reference Range Comments SODIUM (test code=NA) 143 mmol/L 136-145 POTASSIUM (test code=K) 3.4 mmol/L 3.5-5.1 CHLORIDE (test code=CL) 111.0 mmol/L 98-107 CARBON DIOXIDE (test code=CO2) mmol/L 21-32 ANION GAP (test code=GAP) 10-20 GLUCOSE (test code=GLU) mg/dL 74-106 BLOOD UREA NITROGEN (test code=BUN) mg/dL 7-18 GLOMERULAR FILTRATION RATE (test code=GFR) mL/min >=60 CREATININE (test code=CREAT) mg/dL 0.7-1.3 BUN/CREATININE RATIO (test code=BUN/CREA) 10-20 TOTAL PROTEIN (test code=PROT) gram/dL 6.4-8.2 ALBUMIN (test code=ALB) g/dL 3.4-5.0 GLOBULIN (test code=GLOB) gram/dL 2.7-4.2 ALBUMIN/GLOBULIN RATIO (test code=A/G) 0.75-1.50 CALCIUM (test code=CA) mg/dL 8.5-10.1 BILIRUBIN TOTAL (test code=BILT) mg/dL 0.0-1.0 SGOT/AST (test code=AST) IUnit/L 15-37 SGPT/ALT (test code=ALT) IUnit/L 12-78 ALKALINE PHOSPHATASE TOTAL (test code=ALKP) IUnit/L 45-117 LIPID PROFILE (CORONARY RISK)2018-08-19 06:51:00* Test Item Value Reference Range Comments TRIGLYCERIDES (test code=TRIG) mg/dL 20-150 CHOLESTEROL (test code=CHOL) mg/dL 0-200 CHOLESTEROL/HDL RATIO (test code=CHOLHDL) RATIO 0-4.9 HDL CHOLESTEROL (test code=HDL) mg/dL 40-60 LIPOPROTEIN LDL (test code=LDL) mg/dL 100-129 [id number] 06:51:00* Test Item Value Reference Range Comments PHOSPHORUS (test code=PHOS) mg/dL 2.5-4.9 [id number] 06:51:00* Test Item Value Reference Range Comments MAGNESIUM (test code=MAG) mg/dL 1.8-2.4 CBC W/AUTO [id number] 06:22:00* Test Item Value Reference Range Comments WHITE BLOOD CELL (test code=WBC) 7.8 K/mm3 4.5-12.5 RED BLOOD CELL (test code=RBC) 4.40 mill/mm3 4.0-5.8 HEMOGLOBIN (test code=HGB) 12.9 gram/dL 13.0-17.5 HEMATOCRIT (test code=HCT) 40.6 % 42.0-52.0 MEAN CELL VOLUME (test code=MCV) 92.3 fL 80-98 MEAN CELL HGB (test code=MCH) 29.3 picogram 27.0-33.0 MEAN CELL HGB CONCETRATION (test code=MCHC) 31.8 gram/dL 33.0-36.0 RED CELL DISTRIBUTION WIDTH (test code=RDW) 14.6 % 11.6-16.2 RED CELL DISTRIBUTION WIDTH SD (test code=RDW-SD) 49.1 fL 37.0-51.0 PLATELET COUNT (test code=PLT) 219 K/mm3 150-450 MEAN PLATELET VOLUME (test code=MPV) 10.6 fL 6.7-11.0 NEUTROPHIL % (test code=NT%) 70.4 % 39.0-69.0 IMMATURE GRANULOCYTE % (test code=IG%) 0.1 % 0.0-5.0 LYMPHOCYTE % (test code=LY%) 20.3 % 25.0-55.0 MONOCYTE % (test code=MO%) 8.4 % 0.0-10.0 EOSINOPHIL % (test code=EO%) 0.5 % 0.0-5.0 BASOPHIL % (test code=BA%) 0.3 % 0.0-1.0 NUCLEATED RBC % (test code=NRBC%) 0.0 % 0-0 NEUTROPHIL # (test code=NT#) 5.48 K/mm3 1.8-7.7 IMMATURE GRANULOCYTE # (test code=IG#) 0.01 x10 3/uL 0-0.03 LYMPHOCYTE # (test code=LY#) 1.58 K/mm3 1.0-5.0 MONOCYTE # (test code=MO#) 0.65 K/mm3 0-0.8 EOSINOPHIL # (test code=EO#) 0.04 K/mm3 0.0-0.5 BASOPHIL # (test code=BA#) 0.02 K/mm3 0.0-0.2 NUCLEATED RBC # (test code=NRBC#) 0.00 K/mm3 0.0-0.1 [id number] 22:23:00* Test Item Value Reference Range Comments FIBRINOGEN (test code=FIB) 161 mg/dL 200-400 - CT HEAD/BRAIN W/O [id number] 19:10:00 Name: SOL MONTEMAYOR [facility] : 1955 Age/S: 62 / M [address] #: [id number] Loc: [place] [address] Phys: Mami Vegas MD Acct: [id number] Dis Date: Status: ADM IN PHONE #: [phone] Exam Date: 08/18/2018 184 FAX #: [phone] Reason: stroke EXAMS: CPT CODE: [id number] CT HEAD/BRAIN W/O CONT 81818 HISTORY: stroke TECHNIQUE: Noncontrast 2.[address] of the head. Examination acquired within 24 hours of arrival. Automated exposure control for dose reduction. COMPARISON: Noncontrast CT brain, CT angiogram of the head and neck, and noncontrast MR of the brain performed earlier today. FINDINGS: There has been marked increase in size in the hemorrhage in the left parahippocampal gyrus. Previously this hemorrhage measured 9 mm but on the present exam measures up to 25 mm. There is another hemorrhagic area adjacent to the left optic radiation (series 3 image 38) which measures 13 mm which is increased from the previous measurement of 5 mm. Hemorrhagic area in the left occipital lobe (series 3 image 49) has increased from 7 mm previously up to 11 mm on the present study. There is a new hemorrhagic area in the left frontoparietal region (series 3 image 50) which measures 22 mm in size. IMPRESSION: Worsening intraparenchymal hemorrhage throughout the left cerebral hemisphere as described above. Additionally there is a new area of hemorrhage in the left frontoparietal region. at 1910 Reported and signed by: Zia Ceballos MD CC: Mami Vegas MD; Joey Schroeder MD Technologist:Blank Meneses RT(R),CT CTDI: DLP: Trnscb Date/Time: 08/18/2018 (1909) [email or web address] Orig Print D/T: S: 08/18/2018 (1912) CTDI: DLP: PAGE 1 Signed Report - MRI BRAIN W/O [id number] 18:45:00 FAX: Joey Schroeder MD [place]: St: ADM Name: SOL PORTILLO [facility] : [birth year] Age/S: 62/M [address] [facility] Unit #: [id number] Loc: [address] [address] Phys: Joey Schroeder MD Acct: [id number] Dis Date: Status: ADM IN PHONE #: [phone] Exam Date: 08/18/2018 1832 FAX #: [phone] Reason: acute stroke EXAMS: CPT CODE: [id number] MRI BRAIN W/O CONTRAST 96289 REASON FOR EXAM: acute stroke Exam Order Date: 08/18/2018 1:30 PM Attending Walter: Joey Schroeder MD Procedure: - MRI BRAIN W/O CONTRAST Comparison: Noncontrast CT of the brain as well as CT angiogram of the hea d and neck performed earlier today. FINDINGS: Axial, sagittal, and coronal images of the head were obtained using T1, T2 weighted, inversion recovery, and gradient echo sequences. Diffusion restriction images were also obtained. IV contrast was not utilized. There is increa sed signal intensity of the periventricular white matter on the inversion recovery images compatible with chronic microvascular ischemic changes. There is a hyperintense lesion in the left parietal lobe on the inversion recovery sequence measuring 2.1 cm in size (series 12 image 6) that demonstrates blooming artifact on the gradient echo sequence that is compatible with hemorrhage. Similar smaller lesions are present in the l eft occipital lobe (series 12 image 7) throughout the left cerebral hemisp here as described above. When compared to the. Redemonstration of hemorrha ge in the left parahippocampal gyrus. These areas also demonstrate restric onesimo diffusion. No mass effect is seen. Optic chiasm and optic nerv es are within normal limits. IMPRESSION: Multiple intrapar enchymal hemorrhages as described above. When compared to the previous C T scan these hemorrhagic areas appear more conspicuous and numerous. Par ticularly the hemorrhage in the left parietal lobe on image 6 of series 12. at 1845 Reported and signed by: Zia Ceballos MD PAGE 1 Signed Report (CONTINUED) FAX: Joey Bledsoe MD [place]: St: ADM Name: SOL MONTEMAYOR [facility] : 1955 Age/S: 62/M [address] [facility] Unit #: [id number] Loc: [address] [address] Phys: Joey Schroeder MD Acct: [id number] Dis Date: Status: ADM IN PHONE #: [phone] Exam Date: 08/18/2018 183 FAX #: [phone] Reason: acute stroke EXAMS: CPT CODE: [id number] MRI BRAIN W/O CONTRAST 51349 <Continued> CC: Joey Schroeder MD Technologist: RT FARZANA - MRI Trnutrd Date/Time/By: 08/18/2018 (1844) : By: [email or web address] Orig Print D/T: S: 08/18/2018 (1848) PAGE 2 Signed Report [id number] 17:36:00* Test Item Value Reference Range Comments GLUBED (test code=GLUBED) 108 mg/dL 74-106 Performed by certified tin whiz machine operator at [facility] ARTERIAL BLOOD [id number] 15:38:00* Test Item Value Reference Range Comments ARTERIAL BLOOD GAS PH (test code=PHA) 7.34 7.35-7.45 ARTERIAL BLOOD GAS PCO2 (test code=PCO2A) 36.5 mm Hg 35-45 ARTERIAL BLOOD GAS PO2 (test code=PO2A) 198.5 mmHg 80-100 BICARBONATE TOTAL HCO3 (test code=HCO3) 19.1 mmol/L 23.0-27.0 BASE EXCESS (test code=MIRANDA) -6.0 mmol/L -3.0-5.0 Results called to and read back by 15:38 - 08/18/2018; by ANNABEL ABG O2 SATURATION (test code=SATA) 99.1 % 90.0-98.0 ABG TYPE (test code=TYPEA) Arterial FIO2 (test code=FIO2A) 100.0 ABG VENT MODE (test code=MODEA) Assist Control ABG VENT RESP RATE (test code=RRA) 16.0 per min ABG TIDAL VOLUME (test code=TVA) 500.0 mL ABG PEEP (test code=PEEPA) 5.0 cmH2O ABG SITE (test code=SITEA) Rt RADIAL ARTERY MODIFIED ALLENS (test code=MODALL) Yes CHECK PERFORMED HEMATOCRIT (test code=HCT/ABG) 43 % 42-52 TOTAL HGB (test code=THB) 14.6 gram/dL 13.0-17.5 HGB O2 SAT (test code=HBOSAT) 98.1 % 94.00-98.00 CARBOXYHEMOGLOBIN (test code=HOHGBT) 0.4 %totalHg 0.5-1.5 Results called to and read back by 15:38 - 08/18/2018; by ANNABEL METHEMOGLOBIN (test code=METHGB) 0.6 % 0.0-1.50 O2 CONTENT (test code=O2CT) 20.5 % vol 18.0-22.0 - CT HEAD/BRAIN W/O [id number] 15:10:00 Name: SOL MONTEMAYOR [facility] : 1955 Age/S: 62 / M [address] [facility] Unit #: [id number] Loc: [place] [address] Phys: Carol Rodrigues MD Acct: [id number] Dis Date: Status: ADM IN PHONE #: [phone] Exam Date: 08/18/2018 1400 FAX #: [phone] Reason: stroke, seizure, s/p tpa Report Has Been Amended EXAMS: CPT CODE: [id number] CT HEAD/BRAIN W/O CONT 04425 Addendum - 08/18/2018 SIGNED 08/18/2018 ADDENDUM: [id number] CT/CTHDBRWO 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 at 1510 Reported and signed by: Zia Ceballos MD Transcribed: 08/18/2018 (1510) [id number] Report HISTORY: stroke, seizure, s/p tpa TECHNIQUE: Noncontrast 2.[address] of the head followed by Cerebral and Cervical CT angiography in the axial plane after IV administration of contrast. Automated exposure control for dose reduction. COMPARISON: Noncontrast CT brain performed 3 hours earlier FINDINGS: There is a 7 mm hyperdensity in the left occipital lobe (series 3 image 44) which is new from the prior exam and likely represents intraparenchymal hemorrhage. There is a 9 mm hyperdensity in the left parahippocampal gyrus (3 image 29) which is also new and likely represents intraparenchymal hemorrhage. A 5 mm hyperdensity adjacent to the left optic radiation (series 3 image 35) also likely represents intraparenchymal hemorrhage. No midline shift or mass effect however Visualized par anasal sinuses are clear. Mastoid air cells and middle ear cavities are cl ear. Orbital contents are unremarkable. Calvarium and skull base are intac t. There is subsegmental atelectasis in the dependent lungs. There is centrilobular emphysema in the lung apices. On the postc ontrast images there is complete occlusion of the right internal carotid a rtery from the level of the carotid bulb proximally PAGE 1 Signed Report (CONTINUED) Name: SOL MONTEMAYOR [facility] : 1955 Age/S: 62 / M [address] Unit #: [id number] Loc: [facility] [place] [address] Phys: Carol Rodrigues MD Acct: [id number] Dis Date: Status: ADM IN PHONE #: [phone] Exam Date: 1400 FAX #: [phone] Reason: stroke, seiz ure, s/p tpa Report Has Been Am ended EXAMS: CPT CODE: [id number] CT HEAD/BRAIN W/O CONT 97285 < Continued> to the level of the cavernous portion. The cavernous portion of the right internal carotid artery is reconstituted through collateral flow from the contralateral carotid system and vertebrobasilar system. Vertebrobasilar system is patent. The right external carotid artery and the left internal and external carotid arteries are patent. The anterior cerebral arteries are symmetric and patent. Anterior communicating artery is patent. Bilateral posterior communicating arteries and posterior cerebral arteries and middle cerebral arteries are patent and symmetric. IMPRESSION: Interval development of intraparenchymal hemorrhage within the left cerebral hemisphere as described above. 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 There is distal reconstitution via the contralateral carotid system and vertebrobasilar system. No intracranial perfusion defects are appreciated. Dr. Rodrigues was notified of preliminary findings by telephone at 2:37 PM August 18, 2018. at 1437 Reported and signed by: Zia Ceballos MD CC: Joey Schroeder MD; Carol Rodrigues MD Technologist:Blank Meneses RT(R),CT; CTDI: DLP: Trnscb Date/Time: 08/18/2018 (1437) [email or web address] Orig Print D/T: S: 08/18/2018 (1440) CTDI: DLP: PAGE 2 Signed Report - CTA [id number] 15:10:00 Name: SOL MONTEMAYOR [facility] : 1955 Age/S: 62 / M [address] [facility] Unit #: [id number] Loc: [place] [address] Phys: Carol Rodrigues MD Acct: [id number] Dis Date: Status: ADM IN PHONE #: [phone] Exam Date: 08/18/2018 1400 FAX #: [phone] Reason: STROKE, APHASIA Report Has Been Amended EXAMS: CPT CODE: [id number] CTA NECK 84196 Addendum - 08/18/2018 SIGNED 08/18/2018 ADDENDUM: [id number] CT/CTANNKWWO 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 at 1510 Reported and signed by: Zia Ceballos MD Transcribed: 08/18/2018 (1510) [email or web address] Report HISTORY: stroke, seizure, s/p tpa TECHNIQUE: Noncontrast 2.[address] of the head followed by Cerebral and Cervical CT angiography in the axial plane after IV administration of contrast. Automated exposure control for dose reduction. COMPARISON: Noncontrast CT brain performed 3 hours earlier FINDINGS: There is a 7 mm hyperdensity in the left occipital lobe (series 3 image 44) which is new from the prior exam and likely represents intrapar enchymal hemorrhage. There is a 9 mm hyperdensity in the left parahippocam pal gyrus (3 image 29) which is also new and likely represents intraparenc hymal hemorrhage. A 5 mm hyperdensity adjacent to the left optic radiation (series 3 image 35) also likely represents intraparenchymal hemorrhage. No midline shift or mass effect however Visualized pa ranasal sinuses are clear. Mastoid air cells and middle ear cavities are c lear. Orbital contents are unremarkable. Calvarium and skull base are inta ct. There is subsegmental atelectasis in the dependent lungs. Ther e is centrilobular emphysema in the lung apices. On the post contrast images there is complete occlusion of the right internal carotid artery from the level of the carotid bulb proximally PAGE 1 Signed Report (CONTINUED) Name: SOL MONTEMAYOR [facility] : 1955 Age/S: 62 / M [address] Unit #: [id number] Loc: [place] [address] Phys: Carol Rodrigues MD Acct: [id number] Dis Date: Status: ADM IN PHONE #: [phone] Exam Date: 0 08/18/2018 1400 FAX #: [phone] Reason: STROKE, APH LOLIS Report Has Been A mended EXAMS: CPT CODE: [id number] CTA NECK 99934 < Continued> to the level of the cavernous portion. The cavernous portion of the right internal carotid artery is reconstituted through collateral flow from the contralateral carotid system and vertebrobasilar system. Vertebrobasilar system is patent. The right external carotid artery and the left internal and external carotid arteries are patent. The anterior cerebral arteries are symmetric and patent. Anterior communicating artery is patent. Bilateral posterior communicating arteries and posterior cerebral arteries and middle cerebral arteries are patent and symmetric. IMPRESSION: Interval development of intraparenchymal hemorrhage within the left cerebral hemisphere as described above. 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 There is distal reconstitution via the contralateral carotid system and vertebrobasilar system. No intracranial perfusion defects are appreciated. Dr. Rodrigues was notified of preliminary findings by telephone at 2:37 PM August 18, 2018. at 1437 Reported and signed by: Zia Ceballos MD CC: Joey Schroeder MD; Carol Rodrigues MD Technologist:Blank Meneses RT(R),CT; CTDI: DLP: Trnscb Date/Time: 08/18/2018 (1437) [email or web address] Orig Print D/T: S: 08/18/2018 (1440) CTDI: DLP: PAGE 2 Signed Report - CTA [id number] 15:10:00 Name: SOL MONTEMAYOR [facility] : 1955 Age/S: 62 / M [address] [facility] Unit #: [id number] Loc: [place] [address] Phys: Carol Rodrigues MD Acct: [id number] Dis Date: Status: ADM IN PHONE #: [phone] Exam Date: 08/18/2018 1400 FAX #: [phone] Reason: STROKE, APHASIA Report Has Been Amended EXAMS: CPT CODE: [id number] CTA HEAD 65835 Addendum - 08/18/2018 SIGNED 08/18/2018 ADDENDUM: [id number] CT/CTANHDWWO 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 at 1510 Reported and signed by: Zia Ceballos MD Transcribed: 08/18/2018 (1510) [email or web address] Report HISTORY: stroke, seizure, s/p tpa TECHNIQUE: Noncontrast 2.[address] of the head followed by Cerebral and Cervical CT angiography in the axial plane after IV administration of contrast. Automated exposure control for dose reduction. COMPARISON: Noncontrast CT brain performed 3 hours earlier FINDINGS: There is a 7 mm hyperdensity in the left occipital lobe (series 3 image 44) which is new from the prior exam and likely represents intrapar enchymal hemorrhage. There is a 9 mm hyperdensity in the left parahippocam pal gyrus (3 image 29) which is also new and likely represents intraparenc hymal hemorrhage. A 5 mm hyperdensity adjacent to the left optic radiation (series 3 image 35) also likely represents intraparenchymal hemorrhage. No midline shift or mass effect however Visualized pa ranasal sinuses are clear. Mastoid air cells and middle ear cavities are c lear. Orbital contents are unremarkable. Calvarium and skull base are inta ct. There is subsegmental atelectasis in the dependent lungs. Ther e is centrilobular emphysema in the lung apices. On the post contrast images there is complete occlusion of the right internal carotid artery from the level of the carotid bulb proximally PAGE 1 Signed Report (CONTINUED) Name: SOL MONTEMAYOR [facility] : 1955 Age/S: 62 / M [address] [facility] Unit #: [id number] Loc: [place] [address] Phys: Carol Rodrigues MD Acct: [id number] Dis Date: Status: ADM IN PHONE #: [phone] Exam Date: 0 08/18/2018 1400 FAX #: [phone] Reason: STROKE, APH LOLIS Report Has Been A mended EXAMS: CPT CODE: [id number] CTA HEAD 12152 < Continued> to the level of the cavernous portion. The cavernous portion of the right internal carotid artery is reconstituted through collateral flow from the contralateral carotid system and vertebrobasilar system. Vertebrobasilar system is patent. The right external carotid artery and the left internal and external carotid arteries are patent. The anterior cerebral arteries are symmetric and patent. Anterior communicating artery is patent. Bilateral posterior communicating arteries and posterior cerebral arteries and middle cerebral arteries are patent and symmetric. IMPRESSION: Interval development of intraparenchymal hemorrhage within the left cerebral hemisphere as described above. 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 There is distal reconstitution via the contralateral carotid system and vertebrobasilar system. No intracranial perfusion defects are appreciated. Dr. Rodrigues was notified of preliminary findings by telephone at 2:37 PM August 18, 2018. at 1439 Reported and signed by: Zia Ceballos MD CC: Joey Schroeder MD; Carol Rodrigues MD Technologist:Blank Meneses RT(R),CT; CTDI: DLP: Trnscb Date/Time: 08/18/2018 (7797) [email or web address] Orig Print D/T: S: 08/18/2018 (0624) CTDI: DLP: PAGE 2 Signed Report - XR CHEST 1 [id number] 15:02:00 FAX: Joey Schroeder MD [place]: St: [facility] FAX: Carol Rodrigues MD [phone] Name: SOL MONTEMAYOR [facility] : 1955 Age/S: 62/M [address] Unit #: [id number] Loc: [place], [place] [address] Phys: Carol Rodrigues MD Acct: [id number] Dis Date: Status: ADM IN PHONE #: [phone] Exam Date: 08/18/2018 1421 FAX #: [phone] Reason: TUBE PLACEMENT EXAMS: CPT CODE: [id number] XR CHEST 1 V 05182 REASON FOR EXAM: TUBE PLACEMENT Exam Order Date: 08/18/2018 2:23 PM Ordering MShelley: Carol Rodrigues MD PROCEDURE: - XR CHEST 1 V COMPARISON: Contrast-enhanced CT of the chest performed 2 hours earlier 2019 FINDINGS: Patient has been intubated with the ET tube terminating 2.8 cm above the bill. OG tube terminates in the stomach. Lung volumes are di minished which causes crowding of the bronchovascular structures and widen ing of the cardiac mediastinal silhouette. There is subsegmental atelectas is in the lung bases. No acute bony abnormalities. IMPRESSION: Interval intubation and placement of OG tube. These tubes are appropriately positioned. at 1502 Reported and signed by: Jean Paul Ceballos MD CC: Joey Schroeder MD; Carol Rodrigues MD Technologist: Juan Antonio MARIE(R) Trns crd Date/Time/By: 08/18/2018 (6911) : By: [email or web address] Orig Print D/T: S: 08/18/2018 (9903) PAGE 1 Signed Report - CT HEAD/BRAIN W/O [id number] 14:37:00 Name: SOL MONTEMAYOR [facility] : 1955 Age/S: 62 / M [address] Unit #: [id number] Loc: [place] [address] Phys: Mariah Rodrigues MD Acct: [id number] Di s Date: Status: ADM IN PHONE #: Exam Date: 08/18/2018 1400 FAX #: Reason: stroke, seizure, s/p tpa EXAMS: CPT CODE: [id number] CT HEAD/BRAIN W/O CONT 77377 HISTORY: stroke, seizure, s/p tpa TECHNIQUE: Noncontrast 2.[address] of the head follo wed by Cerebral and Cervical CT angiography in the axial plane after IV administration of contrast. Automated exposure control for dose reduc tion. COMPARISON: Noncontrast CT brain performed 3 hours earlier FINDINGS: There is a 7 mm hyperdensity in the left oc cipital lobe (series 3 image 44) which is new from the prior exam and like ly represents intraparenchymal hemorrhage. There is a 9 mm hyperdensity in the left parahippocampal gyrus (3 image 29) which is also new and likely represents intraparenchymal hemorrhage. A 5 mm hyperdensity adjacent to the left optic radiation (series 3 image 35) also likely represents in traparenchymal hemorrhage. No midline shift or mass effect however Visualized paranasal sinuses are clear. Mastoid air cells and mid dle ear cavities are clear. Orbital contents are unremarkable. Calvarium and skull base are intact. There is subsegmental atelectasis in the dependent lungs. There is centrilobular emphysema in the lung apice s. On the postcontrast images there is complete occlusion of the r ight internal carotid artery from the level of the carotid bulb proximally to the level of the cavernous portion. The cavernous portion of the right internal carotid artery is reconstituted through collateral flow fr om the contralateral carotid system and vertebrobasilar system. Ve rtebrobasilar system is patent. The right external carotid artery and the left internal and external carotid arteries are patent. The anteri or cerebral arteries are symmetric and patent. Anterior communicating aston ry is patent. Bilateral posterior communicating arteries and posterior cer ebral arteries and middle cerebral arteries are patent and symmetric. IMPRESSION: Interval development of intraparenchym al hemorrhage within the left PAGE 1 Signed Report (CONTINUED) Name: SOL MONTEMAYOR [facility] : 1955 Age/S: 62 / M [address] Unit #: [id number] Loc: [place] [address] Phys: Carol Rodrigues MD Acct: [id number] Dis Date: Status: ADM IN PHONE #: [phone] Exam Date: 08/18/2018 1400 FAX #: [phone] Reason: stroke, seizure, s/p tpa EXAMS: CPT CODE: [id number] CT HEAD/BRAIN W/O CONT 29033 < Continued> cerebral hemisphere as described above. 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 There is distal reconstitution via the contralateral carotid system and vertebrobasilar system. No intracranial perfusion defects are appreciated. Dr. Rodrigues was notified of preliminary findings by telephone at 2:37 PM August 18, 2018. at 1437 Reported and signed by: Zia Ceballos MD CC: Joey Schroeder MD; Carol Rodrigues MD Technologist:Blank Meneses RT(R),CT; CTDI: DLP: Trnscb Date/Time: 08/18/2018 (4777) [email or web address] Orig Print D/T: S: 08/18/2018 (1834) CTDI: DLP: PAGE 2 Signed Report - CTA NECK 2018-08-18 14:37:00 Name: MONTEMAYOR,JOHN [facility] : 1955 Age/S: 62 / M [address] [facility] Unit #: [id number] Loc: [place] [address] Phys: Carol Rodrigues MD Acct: [id number] Dis Date: Status: ADM IN PHONE #: [phone] Exam Date: 08/18/2018 1400 FAX #: [phone] Reason: STROKE, APHASIA EXAMS: CPT CODE: [id number] CTA NECK 94224 HISTORY: stroke, seizure, s/p tpa TECHNIQUE: Noncontrast 2.[address] of the head followed by Cerebral and Cervical CT angiography in the axial plane after IV administration of contrast. Automated exposure control for dose reduction. COMPARISON: Noncontrast CT brain performed 3 hours earlier FINDINGS: There is a 7 mm hyperdensity in the left occipital lobe (series 3 image 44) which is new from the prior exam and likely represents intraparenchymal hemorrhage. There is a 9 mm hyperdensity in the left parahippocampal gyrus (3 image 29) which is also new and likely represents intraparenchymal hemorrhage. A 5 mm hyperdensity adjacent to the left optic radiation (series 3 image 35) also likely represents intraparenchymal hemorrhage. No midline shift or mass effect however Visualized paranasal sinuses are clear. Mastoid air cells and middle ear cavities are clear. Orbital contents are unremarkable. Calvarium and skull base are intact. There is subsegmental atelectasis in the dependent lungs. There is centrilobular emphysema in the lung apices. On the postcontrast images there is complete occlusion of the right internal carotid artery from the level of the carotid bulb proximally to the level of the cavernous portion. The cavernous portion of the right internal carotid artery is reconstituted through collateral flow from the contralateral carotid system and vertebrobasilar system. Vertebrobasilar system is patent. The right external carotid artery and the left internal and external carotid arteries are patent. The anterior cerebral arteries are symmetric and patent. Anterior communicating artery is patent. Bilateral posterior communicating arteries and posterior cerebral arteries and middle cerebral arteries are patent and symmetric. IMPRESSION: Interval development of intraparenchymal hemorrhage within the left PAGE 1 Signed Report (CONTINUED) Name: SOL MONTEMAYOR [facility] : 1955 Age/S: 62 / M [address] [facility] Unit #: [id number] Loc: [place] [address] Phys: Carol Rodrigues MD Acct: [id number] Dis Date: Status: ADM IN PHONE #: [phone] Exam Date: 08/18/2018 1400 FAX #: [phone] Reason: STROKE, APHASIA EXAMS: CPT CODE: [id number] CTA NECK 86193 < Continued> cerebral hemisphere as described above. 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 There is distal reconstitution via the contralateral carotid system and vertebrobasilar system. No intracranial perfusion defects are appreciated. Dr. Rodrigues was notified of preliminary findings by telephone at 2:37 PM August 18, 2018. at 1437 Reported and signed by: Zia Ceballos MD CC: Joey Schroeder MD; Carol Rodrigues MD Technologist:Blank Meneses RT(R),CT; CTDI: DLP: Trnscb Date/Time: 08/18/2018 (1437) [email or web address] Orig Print D/T: S: 08/18/2018 (1442) CTDI: DLP: PAGE 2 Signed Report - CTA HEAD 2018-08-18 14:37:00 Name: SOL MONTEMAYOR [facility] : 1955 Age/S: 62 / M [address] Unit #: [id number] Loc: [place] [address] Phys: Carol Rodrigues MD Acct: [id number] Dis Date: Status: ADM IN PHONE #: [phone] Exam Date: 08/18/2018 1400 FAX #: [phone] Reason: STROKE, APHASIA EXAMS: CPT CODE: [id number] CTA HEAD 06271 HISTORY: stroke, seizure, s/p tpa TECHNIQUE: Noncontrast 2.[address] of the head followed by Cerebral and Cervical CT angiography in the axial plane after IV administration of contrast. Automated exposure control for dose reduction. COMPARISON: Noncontrast CT brain performed 3 hours earlier FINDINGS: There is a 7 mm hyperdensity in the left occipital lobe (series 3 image 44) which is new from the prior exam and likely represents intraparenchymal hemorrhage. There is a 9 mm hyperdensity in the left parahippocampal gyrus (3 image 29) which is also new and likely represents intraparenchymal hemorrhage. A 5 mm hyperdensity adjacent to the left optic radiation (series 3 image 35) also likely represents intraparenchymal hemorrhage. No midline shift or mass effect however Visualized paranasal sinuses are clear. Mastoid air cells and middle ear cavities are clear. Orbital contents are unremarkable. Calvarium and skull base are intact. There is subsegmental atelectasis in the dependent lungs. There is centrilobular emphysema in the lung apices. On the postcontrast images there is complete occlusion of the right internal carotid artery from the level of the carotid bulb proximally to the level of the cavernous portion. The cavernous portion of the right internal carotid artery is reconstituted through collateral flow from the contralateral carotid system and vertebrobasilar system. Vertebrobasilar system is patent. The right external carotid artery and the left internal and external carotid arteries are patent. The anterior cerebral arteries are symmetric and patent. Anterior communicating artery is patent. Bilateral posterior communicating arteries and posterior cerebral arteries and middle cerebral arteries are patent and symmetric. IMPRESSION: Interval development of intraparenchymal hemorrhage within the left PAGE 1 Signed Report (CONTINUED) Name: SOL MONTEMAYOR [facility] : 1955 Age/S: 62 / M [address] Unit #: [id number] Loc: [place] [address] Phys: Carol Rodrigues MD Acct: [id number] Dis Date: Status: ADM IN PHONE #: [phone] Exam Date: 08/18/2018 1400 FAX #: [phone] Reason: STROKE, APHASIA EXAMS: CPT CODE: [id number] CTA HEAD 35753 < Continued> cerebral hemisphere as described above. 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 There is distal reconstitution via the contralateral carotid system and vertebrobasilar system. No intracranial perfusion defects are appreciated. Dr. Rodrigues was notified of preliminary findings by telephone at 2:37 PM August 18, 2018. at 1437 Reported and signed by: Zia Ceballos MD CC: Joey Schroeder MD; Carol Rodrigues MD Technologist:Blank Meneses RT(R),CT; CTDI: DLP: Trnscb Date/Time: 08/18/2018 (1437) [email or web address] Orig Print D/T: S: 08/18/2018 (6413) CTDI: DLP: PAGE 2 Signed Report HGBA1C 2018-08-18 14:25:00* Test Item Value Reference Range Comments GLYCOSYLATED HEMOGLOBIN (HA1C) (test code=GLYHGB) 6.3 % HbA1 4.8-6.0 ESTIMATED AVERAGE GLUCOSE (test code=EAG) 134 MG/DL - CT ABD PELVIS [id number] 12:36:00 Name: SOL MONTEMAYOR [facility] : 1955 Age/S: 62 / M [address] Unit #: [id number] Loc: [place] [address] Phys: Carol Rodrigues MD Acct: [id number] Dis Date: Status: REG ER PHONE #: [phone] Exam Date: 08/18/2018 1210 FAX #: [phone] Reason: PAIN EXAMS: CPT CODE: [id number] CT ABD PELVIS W/CONT 53181 HISTORY: Pain. COMPARISON: None available. CT chest with contrast: 100 mL of Isovue-370. Automated exposure control. Unremarkable aorta without aneurysm or dissection. Unremarkable pulmonary arteries (not performed as PE protocol). Well-opacified SVC. Unremarkable visualized neck vasculature. Thyroid glands are normal. Esophageal wall is not thickened. No pathologic adenopathy. Cardiomegaly without pericardial effusion. Subcutaneous tissues and the musculature are normal in appearance. No lytic or blastic lesions are noted within the bony skeleton. Lungs are clear of infiltrates, effusion or congestion. No bronchiectasis, honeycombing or fibrosis or endobronchial lesions. Dependent changes bilaterally. IMPRESSION: No acute intrathoracic pathology. CT abdomen with contrast: The liver enhances homogeneously mild fatty infiltration measuring 19.2 cm in length. No discrete mass or lesions are noted. Gallbladder is not seen. Spleen is unremarkable. The stomach distended incompletely but it is normal in appearance. Pancreas is enhancing homogeneously. Unremarkable adrenals. Both kidneys are free from hydroureteronephrosis with innumerable bilateral nonobstructing 3 to 4 mm calyceal stones in the upper, lower and inter polar region. Lung scarring in the right interpolar and lower pole loca tion. Exophytic Bosniak 1 lesion in the left lower pole. Bilateral exc retion. No pathologic adenopathy. Well-opacified abdominal an d pelvic vasculature. Mild atherosclerotic change. PAGE 1 Signed Report (CONTINUED) Name: SOL MONTEMAYOR [facility] : 1955 Age/S: 62 / M [address] [facility] Unit #: [id number] Loc: [place], [place] [address] Phys: Carol Rodrigues MD Acct: [id number] Dis Date: Status: REG ER PHONE #: [phone] Exam Date: 08/18/2018 1210 FAX #: [phone] Reason: PAIN EXAMS: CPT CODE: [id number] CT ABD PELVIS W/CONT 53935 <Continued> No bowel obstruction or colitis or diverticulitis or enteritis. CT PELVIS: Appendix is normal. Pelvic bowel loops are unobstructed. Unremarkable urinary bladder. Prostatomegaly at 5.2 cm. No free fluid or free air or abscess. Patulous left inguinal canal. No pelvic pathologic adenopathy. Subcutaneous tissues and musculature are normal in appearance. No lytic or blastic lesions are noted within the bony skeleton. DJD. Pars interarticularis fracture at L5-S1 level bilaterally. IMPRESSION: Bilateral nonobstructing innumerable calyceal stones measuring 3 to 4 mm without hydroureteronephrosis. Unremarkable urinary bladder. Prostatomegaly. Normal appendix without bowel obstruction or colitis or diverticulitis or enteritis. Patent vasculature without aneurysm. No dissection. at 1236 Reported and signed by: Chato Lin M.D. CC: Carol Rodrigues MD Technologist:Blank Meneses RT(R),CT; CTDI: DLP: Trnscb Date/Time: 08/18/2018 (1236) t.[email or web address].TH4 Orig Print D/T: S: 08/18/2018 (1239) CTDI: DLP: PAGE 2 Signed Report - CT CHEST W/[id number] 12:36:00 Name: SOL MONTEMAYOR [facility] : 1955 Age/S: 62 / M [address] [facility] Unit #: [id number] Loc: [place] [address] Phys: Carol Rodrigues MD Acct: [id number] Dis Date: Status: REG ER PHONE #: [phone] Exam Date: 08/18/2018 1210 FAX #: [phone] Reason: PAIN EXAMS: CPT CODE: [id number] CT CHEST W/CONTRAST 78340 HISTORY: Pain. COMPARISON: None available. CT chest with contrast: 100 mL of Isovue-370. Automated exposure control. Unremarkable aorta without aneurysm or dissection. Unremarkable pulmonary arteries (not performed as PE protocol). Well-opacified SVC. Unremarkable visualized neck vasculature. Thyroid glands are normal. Esophageal wall is not thickened. No pathologic adenopathy. Cardiomegaly without pericardial effusion. Subcutaneous tissues and the musculature are normal in appearance. No lytic or blastic lesions are noted within the bony skeleton. Lungs are clear of infiltrates, effusion or congestion. No bronchiectasis, honeycombing or fibrosis or endobronchial lesions. Dependent changes bilaterally. IMPRESSION: No acute intrathoracic pathology. CT abdomen with contrast: The liver enhances homogeneously mild fatty infiltration measuring 19.2 cm in length. No discrete mass or lesions are noted. Gallbladder is not seen. Spleen is unremarkable. The stomach distended incompletely but it is normal in appearance. Pancreas is enhancing homogeneously. Unremarkable adrenals. Both kidneys are free from hydroureteronephrosis with innumerable bilateral nonobstructing 3 to 4 mm calyceal stones in the upper, lower and inter polar region. Lung scarring in the right interpolar and lower pole loca tion. Exophytic Bosniak 1 lesion in the left lower pole. Bilateral exc retion. No pathologic adenopathy. Well-opacified abdominal an d pelvic vasculature. Mild atherosclerotic change. PAGE 1 Signed Report (CONTINUED) Name: SOL MONTEMAYOR [facility] : 1955 Age/S: 62 / M [address] [facility] Unit #: [id number] Loc: [place] [address] Phys: Carol Rodrigues MD Acct: [id number] Dis Date: Status: REG ER PHONE #: [phone] Exam Date: 08/18/2018 1210 FAX #: [phone] Reason: PAIN EXAMS: CPT CODE: [id number] CT CHEST W/CONTRAST 57982 <Continued> No bowel obstruction or colitis or diverticulitis or enteritis. CT PELVIS: Appendix is normal. Pelvic bowel loops are unobstructed. Unremarkable urinary bladder. Prostatomegaly at 5.2 cm. No free fluid or free air or abscess. Patulous left inguinal canal. No pelvic pathologic adenopathy. Subcutaneous tissues and musculature are normal in appearance. No lytic or blastic lesions are noted within the bony skeleton. DJD. Pars interarticularis fracture at L5-S1 level bilaterally. IMPRESSION: Bilateral nonobstructing innumerable calyceal stones measuring 3 to 4 mm without hydroureteronephrosis. Unremarkable urinary bladder. Prostatomegaly. Normal appendix without bowel obstruction or colitis or diverticulitis or enteritis. Patent vasculature without aneurysm. No dissection. at 1236 Reported and signed by: Chato Lin M.D. CC: Caorl Rodrigues MD Technologist:Blank Meneses RT(R),CT; CTDI: DLP: Trnscb Date/Time: 08/18/2018 (3096) t.DORYR.[email or web address] Orig Print D/T: S: 08/18/2018 (9685) CTDI: DLP: PAGE 2 Signed Report BASIC METABOLIC [id number] 11:24:00* Test Item Value Reference Range Comments SODIUM (test code=NA) 140 mmol/L 136-145 POTASSIUM (test code=K) 4.2 mmol/L 3.5-5.1 CHLORIDE (test code=CL) 106.0 mmol/L 98-107 CARBON DIOXIDE (test code=CO2) 27.0 mmol/L 21-32 ANION GAP (test code=GAP) 11.2 10-20 GLUCOSE (test code=GLU) 90 mg/dL 74-106 BLOOD UREA NITROGEN (test code=BUN) 12 mg/dL 7-18 GLOMERULAR FILTRATION RATE (test code=GFR) > 60 mL/min >=60 Estimated GFR by using Modified MDRD formula.Chronic kidney disease is defined as either kidney damageor GFR <60 mL/min/1.73 m2 for >3 months. CREATININE (test code=CREAT) 1.20 mg/dL 0.7-1.3 BUN/CREATININE RATIO (test code=BUN/CREA) 9.9 10-20 CALCIUM (test code=CA) 9.3 mg/dL 8.5-10.1 HEPATIC FUNCTION [id number] 11:24:00* Test Item Value Reference Range Comments TOTAL PROTEIN (test code=PROT) 8.3 gram/dL 6.4-8.2 ALBUMIN (test code=ALB) 4.1 g/dL 3.4-5.0 GLOBULIN (test code=GLOB) 4.2 gram/dL 2.7-4.2 ALBUMIN/GLOBULIN RATIO (test code=A/G) 1.0 0.75-1.50 BILIRUBIN TOTAL (test code=BILT) 0.40 mg/dL 0.0-1.0 BILIRUBIN DIRECT (test code=BILD) 0.11 mg/dL 0.0-0.20 SGOT/AST (test code=AST) 25 IUnit/L 15-37 SGPT/ALT (test code=ALT) 49 IUnit/L 12-78 ALKALINE PHOSPHATASE TOTAL (test code=ALKP) 86 IUnit/L 45-117 Note change in reference range due to change in reagent. CREATINE KINASE (CK)2018-08-18 11:24:00* Test Item Value Reference Range Comments CREATINE KINASE (CK) (test code=CK) 179 IUnit/L 26-208 [id number] 11:24:00* Test Item Value Reference Range Comments LIPASE (test code=LIP) 101 U/L 73.0-393.0 THYROID STIMULATING [id number] 11:24:00* Test Item Value Reference Range Comments THYROID STIMULATING HORMONE (test code=TSH) 3.250 uIU/mL 0.36-3.74 TSH REFERENCE RANGES: EUTHYROID: 0.35 - 4.3 mIU/mL HYPO : > 5.5 mIU/mL HYPER : < 0.35 mIU/mL [id number] 11:24:00* Test Item Value Reference Range Comments TROPONIN-I (test code=TROPI) <0.015 ng/mL 0-0.045 [id number] 11:24:00* Test Item Value Reference Range Comments ACETAMINOPHEN (test code=ACET) < 10 mcg/mL 10-30 A RANGE OF 10-30 mcg/mL IS A THERAPEUTIC RANGE. TOXIC CONCENTRATIONS: >150 mcg/mL AT 4 HOURS AFTER INGESTION >=50 mcg/mL AT 12 HOURS AFTER INGESTION [id number] 11:24:00* Test Item Value Reference Range Comments SALICYLATE (test code=EMRE) < 1.7 mg/dL 2.8-20.0 [id number] 11:24:00* Test Item Value Reference Range Comments ALCOHOL (test code=ALC) < 3 mg/dL 0.0-3.0 INTERPRETIVE DATA NOTE: POSITIVE SCREENING RESULTS SHOULD BE CONSIDERED PRESUMPTIVE.WHEN COLLECTED FOR MEDICAL PURPOSES ONLY. SPECIMEN WILL NOTBE COLLECTED BY CHAIN OF CUSTODY.IF A CONFIRMATION OF POSITIVE RESULTS IS DESIRED, ACONFIRMATION TEST MUST BE REQUESTED BY THE PHYSICIAN AT ANADDITIONAL CHARGE TO THE PATIENT. - XR CHEST 1 [id number] 11:21:00 FAX: Carol Rodrigues MD [phone] [place]: St: REG Name: SOL PORTILLO [facility] : [birth year] Age/S: 62/M [address] [facility] Unit #: [id number] Loc: [place] [address] Phys: Carol Rodrigues MD Acct: [id number] Dis Date: Status: REG ER PHONE #: [phone] Exam Date: 08/18/2018 1100 FAX #: [phone] Reason: Altered Mental Status EXAMS: CPT CODE: [id number] XR CHEST 1 V 71024 HISTORY: Confusion. COMPARISON: None available. No acute infiltrates, effusion or venkatesh estion is noted. Suboptimal inspiration with dependent changes. Cardiomegaly. IMPRESSION: No acute infi ltrates, effusion or congestion. at 1121 Reported and signed by: Solomon Lin M.D. CC: Carol Rodrigues MD Technologist: UMANG MARIE(R) Trnscrd Date/Time/By: 08/18/2018 (1121) : By: [email or web address] Orig Print D/T: S: 08/18/2018 (1124) PAGE 1 Signed Report [id number] 11:16:00* Test Item Value Reference Range Comments AMMONIA (test code=AMM) 20 umol/L 11-32 BASIC METABOLIC [id number] 11:12:00* Test Item Value Reference Range Comments SODIUM (test code=NA) 140 mmol/L 136-145 POTASSIUM (test code=K) 4.2 mmol/L 3.5-5.1 CHLORIDE (test code=CL) 106.0 mmol/L 98-107 CARBON DIOXIDE (test code=CO2) mmol/L 21-32 ANION GAP (test code=GAP) 10-20 GLUCOSE (test code=GLU) mg/dL 74-106 BLOOD UREA NITROGEN (test code=BUN) mg/dL 7-18 GLOMERULAR FILTRATION RATE (test code=GFR) mL/min >=60 CREATININE (test code=CREAT) mg/dL 0.7-1.3 BUN/CREATININE RATIO (test code=BUN/CREA) 10-20 CALCIUM (test code=CA) mg/dL 8.5-10.1 HEPATIC FUNCTION [id number] 11:12:00* Test Item Value Reference Range Comments TOTAL PROTEIN (test code=PROT) gram/dL 6.4-8.2 ALBUMIN (test code=ALB) g/dL 3.4-5.0 GLOBULIN (test code=GLOB) gram/dL 2.7-4.2 ALBUMIN/GLOBULIN RATIO (test code=A/G) 0.75-1.50 BILIRUBIN TOTAL (test code=BILT) mg/dL 0.0-1.0 BILIRUBIN DIRECT (test code=BILD) mg/dL 0.0-0.20 SGOT/AST (test code=AST) IUnit/L 15-37 SGPT/ALT (test code=ALT) IUnit/L 12-78 ALKALINE PHOSPHATASE TOTAL (test code=ALKP) IUnit/L 45-117 CREATINE KINASE (CK)2018-08-18 11:12:00* Test Item Value Reference Range Comments CREATINE KINASE (CK) (test code=CK) IUnit/L 26-208 [id number] 11:12:00* Test Item Value Reference Range Comments LIPASE (test code=LIP) U/L 73.0-393.0 THYROID STIMULATING [id number] 11:12:00* Test Item Value Reference Range Comments THYROID STIMULATING HORMONE (test code=TSH) uIU/mL 0.36-3.74 [id number] 11:12:00* Test Item Value Reference Range Comments TROPONIN-I (test code=TROPI) ng/mL 0-0.045 [id number] 11:12:00* Test Item Value Reference Range Comments ACETAMINOPHEN (test code=ACET) mcg/mL 10-30 [id number] 11:12:00* Test Item Value Reference Range Comments SALICYLATE (test code=EMRE) mg/dL 2.8-20.0 [id number] 11:12:00* Test Item Value Reference Range Comments ALCOHOL (test code=ALC) mg/dL 0-3 PROTHROMBIN [id number] 11:01:00* Test Item Value Reference Range Comments PROTHROMBIN TIME PATIENT (test code=PTP) 12.9 seconds 9.0-14.0 INTERNATIONAL NORMAL RATIO (test code=INR) 1.1 0.8-1.2 The therapeutic range for oral anticoagulant therapy formost indications is an international normalized ratio (INR)of between 2.0 and 3.0. The recommended therapeutic INRrange for various clinical situations is listed below: Clinical Situation INR range Pulmonary e mbolism treatment (2.0-3.0)Venous thrombosis treatmentVenous thrombosis prophylaxis (high risk surgery)Prevention of systemic embolism from: Acute myocardial infarction Valvular heart disease Atrial fibrillation Mechanical prosthetic heart valves (2.5-3.5) IS PATIENT ON ANTICOAGULANTS? NTHROMBOPLASTIN TIME [id number] 11:01:00* Test Item Value Reference Range Comments THROMBOPLASTIN TIME PARTIAL (test code=PTT) 29.7 seconds 25.0-36.5 IS PATIENT ON ANTICOAGULANTS? NCBC W/AUTO [id number] 11:00:00* Test Item Value Reference Range Comments WHITE BLOOD CELL (test code=WBC) 8.2 K/mm3 4.5-12.5 RED BLOOD CELL (test code=RBC) 4.91 mill/mm3 4.0-5.8 HEMOGLOBIN (test code=HGB) 14.1 gram/dL 13.0-17.5 HEMATOCRIT (test code=HCT) 45.0 % 42.0-52.0 MEAN CELL VOLUME (test code=MCV) 91.6 fL 80-98 MEAN CELL HGB (test code=MCH) 28.7 picogram 27.0-33.0 MEAN CELL HGB CONCETRATION (test code=MCHC) 31.3 gram/dL 33.0-36.0 RED CELL DISTRIBUTION WIDTH (test code=RDW) 14.3 % 11.6-16.2 RED CELL DISTRIBUTION WIDTH SD (test code=RDW-SD) 47.9 fL 37.0-51.0 PLATELET COUNT (test code=PLT) 246 K/mm3 150-450 MEAN PLATELET VOLUME (test code=MPV) 10.2 fL 6.7-11.0 NEUTROPHIL % (test code=NT%) 61.7 % 39.0-69.0 IMMATURE GRANULOCYTE % (test code=IG%) 0.2 % 0.0-5.0 LYMPHOCYTE % (test code=LY%) 29.4 % 25.0-55.0 MONOCYTE % (test code=MO%) 7.4 % 0.0-10.0 EOSINOPHIL % (test code=EO%) 0.7 % 0.0-5.0 BASOPHIL % (test code=BA%) 0.6 % 0.0-1.0 NUCLEATED RBC % (test code=NRBC%) 0.0 % 0-0 NEUTROPHIL # (test code=NT#) 5.04 K/mm3 1.8-7.7 IMMATURE GRANULOCYTE # (test code=IG#) 0.02 x10 3/uL 0-0.03 LYMPHOCYTE # (test code=LY#) 2.41 K/mm3 1.0-5.0 MONOCYTE # (test code=MO#) 0.61 K/mm3 0-0.8 EOSINOPHIL # (test code=EO#) 0.06 K/mm3 0.0-0.5 BASOPHIL # (test code=BA#) 0.05 K/mm3 0.0-0.2 NUCLEATED RBC # (test code=NRBC#) 0.00 K/mm3 0.0-0.1 MANUAL DIFF REQUIRED (test code=MDIFF) NO - CT HEAD/BRAIN W/O [id number] 10:52:00 Name: SOL MONTEMAYOR [facility] : 1955 Age/S: 62 / M [address] Unit #: [id number] Loc: [place] [address] Phys: Carol Rodrigues MD Acct: [id number] Dis Date: Status: PRE ER PHONE #: [phone] Exam Date: 08/18/2018 1049 FAX #: [phone] Reason: Altered Mental Status EXAMS: CPT CODE: [id number] CT HEAD/BRAIN W/O CONT 61097 HISTORY: Stroke. No prior films available for comparison. CT brain without contrast: Automated exposure control. No acute intracranial bleeds or extra-axial collections are noted. No acute territorial vascular infarction is noted. The sulci, gyri, ventricles and subarachnoid spaces and the basilar cisterns are normal for patient's age. No herniation or hydrocephalus or midline shift is noted. Mild periventricular ischemic gliosis is noted. Age-appropriate atrophy is noted as well. Portions of the visualized paranasal sinuses are normal. No obvious bony calvarial defect is noted. IMPRESSION: No acute intracranial bleeds or extra-axial collections. No acute territorial vascular infarction. No herniation or hydrocephalus or midline shift. Chronic white matter ischemic disease and atrophy . These findings were discussed with Dr. Rodrigues at 10:52 AM. FOR INTERNAL CODING P URPOSES ONLY RESULT CODE: CVR at 1052 Repor onesimo and signed by: Chato Lin M.D. CC: Carol Rodrigues MD Technologist:Blank Meneses RT(R),CT; CTDI: DLP: Trnscb Date/Time: 08/18/2018 (1052) Homar.[email or web address] Orig Print D/T: S: 08/18/2018 (4388) CTDI: DLP: PAGE 1 Signed Report TACROLIMUS [id number] 11:21:00* Test Item Value Reference Range Comments TACROLIMUS BLOOD (BEAKER) (test uakr=419) 7.7 ng/mL 10.0-20.0 [id number] 09:00:00* Test Item Value Reference Range Comments MAGNESIUM (BEAKER) (test hysj=624) 1.6 mg/dL 1.6-2.6 COMPREHENSIVE METABOLIC [id number] 09:00:00* Test Item Value Reference Range Comments TOTAL PROTEIN (BEAKER) (test eziy=713) 8.4 gm/dL 6.0-8.3 ALBUMIN (BEAKER) (test puas=6522) 4.5 g/dL 3.5-5.0 ALKALINE PHOSPHATASE (BEAKER) (test fggg=492) 74 U/L 40-150 BILIRUBIN TOTAL (BEAKER) (test aqbj=687) 0.5 mg/dL 0.2-1.2 SODIUM (BEAKER) (test ocik=389) 138 meq/L 136-145 POTASSIUM (BEAKER) (test fhwd=959) 4.1 meq/L 3.5-5.1 CHLORIDE (BEAKER) (test ujyp=408) 105 meq/L 98-107 CO2 (BEAKER) (test ihka=208) 23 meq/L 22-29 BLOOD UREA NITROGEN (BEAKER) (test ywiu=929) 15 mg/dL 7-21 CREATININE (BEAKER) (test ekjz=047) 1.09 mg/dL 0.57-1.25 GLUCOSE RANDOM (BEAKER) (test kmnd=809) 96 mg/dL 70-105 CALCIUM (BEAKER) (test dpvw=450) 10.0 mg/dL 8.4-10.2 AST (SGOT) (BEAKER) (test ngiv=699) 23 U/L 5-34 ALT (SGPT) (BEAKER) (test elty=652) 39 U/L 6-55 EGFR (BEAKER) (test wtte=3145) 68 mL/min/1.73 sq m ESTIMATED GFR IS NOT ACCURATE CREATININE CLEARANCE IN PREDICTING GLOMERULAR FILTRATION RATE. ESTIMATED GFR IS NOT APPLICABLE FOR DIALYSIS PATIENTS. BILIRUBIN, [id number] 09:00:00* Test Item Value Reference Range Comments BILIRUBIN DIRECT (BEAKER) (test rfiw=355) 0.2 mg/dL 0.1-0.5 CBC W/PLT COUNT & AUTO [id number] 08:41:00* Test Item Value Reference Range Comments WHITE BLOOD CELL COUNT (BEAKER) (test epbs=863) 6.5 K/ L 3.5-10.5 RED BLOOD CELL COUNT (BEAKER) (test fnis=117) 5.11 M/ L 4.63-6.08 HEMOGLOBIN (BEAKER) (test detw=629) 14.8 GM/DL 13.7-17.5 HEMATOCRIT (BEAKER) (test pulj=723) 46.9 % 40.1-51.0 MEAN CORPUSCULAR VOLUME (BEAKER) (test hknl=362) 91.8 fL 79.0-92.2 MEAN CORPUSCULAR HEMOGLOBIN (BEAKER) (test ehci=813) 29.0 pg 25.7-32.2 MEAN CORPUSCULAR HEMOGLOBIN CONC (BEAKER) (test pfwq=799) 31.6 GM/DL 32.3-36.5 RED CELL DISTRIBUTION WIDTH (BEAKER) (test twiv=499) 14.3 % 11.6-14.4 PLATELET COUNT (BEAKER) (test uhzo=320) 282 K/CU MM 150-450 MEAN PLATELET VOLUME (BEAKER) (test leub=522) 10.7 fL 9.4-12.4 NUCLEATED RED BLOOD CELLS (BEAKER) (test sgjh=494) 0 /100 WBC 0-0 NEUTROPHILS RELATIVE PERCENT (BEAKER) (test wupb=557) 60 % LYMPHOCYTES RELATIVE PERCENT (BEAKER) (test ohnd=384) 30 % MONOCYTES RELATIVE PERCENT (BEAKER) (test pllm=744) 8 % EOSINOPHILS RELATIVE PERCENT (BEAKER) (test syvh=696) 1 % BASOPHILS RELATIVE PERCENT (BEAKER) (test rkbf=934) 1 % NEUTROPHILS ABSOLUTE COUNT (BEAKER) (test gztv=138) 3.89 K/ L 1.78-5.38 LYMPHOCYTES ABSOLUTE COUNT (BEAKER) (test alqs=392) 1.92 K/ L 1.32-3.57 MONOCYTES ABSOLUTE COUNT (BEAKER) (test bcqw=377) 0.54 K/ L 0.30-0.82 EOSINOPHILS ABSOLUTE COUNT (BEAKER) (test ihge=503) 0.06 K/ L 0.04-0.54 BASOPHILS ABSOLUTE COUNT (BEAKER) (test ofcd=025) 0.07 K/ L 0.01-0.08 IMMATURE GRANULOCYTES-RELATIVE PERCENT (BEAKER) (test uroj=0825) 1 % 0-1 TACROLIMUS [id number] 13:47:00* Test Item Value Reference Range Comments TACROLIMUS BLOOD (BEAKER) (test obbu=632) 6.4 ng/mL 10.0-20.0 [id number] 09:02:00* Test Item Value Reference Range Comments MAGNESIUM (BEAKER) (test wjjk=288) 1.5 mg/dL 1.6-2.6 COMPREHENSIVE METABOLIC [id number] 09:02:00* Test Item Value Reference Range Comments TOTAL PROTEIN (BEAKER) (test sbzs=014) 8.0 gm/dL 6.0-8.3 ALBUMIN (BEAKER) (test tuyj=7584) 4.3 g/dL 3.5-5.0 ALKALINE PHOSPHATASE (BEAKER) (test gybz=358) 81 U/L 40-150 BILIRUBIN TOTAL (BEAKER) (test gsrk=181) 0.4 mg/dL 0.2-1.2 SODIUM (BEAKER) (test vqnr=872) 138 meq/L 136-145 POTASSIUM (BEAKER) (test hevs=451) 3.6 meq/L 3.5-5.1 CHLORIDE (BEAKER) (test lzdj=244) 107 meq/L 98-107 CO2 (BEAKER) (test leto=785) 22 meq/L 22-29 BLOOD UREA NITROGEN (BEAKER) (test ljit=234) 15 mg/dL 7-21 CREATININE (BEAKER) (test mjqz=307) 1.07 mg/dL 0.57-1.25 GLUCOSE RANDOM (BEAKER) (test jvuu=206) 94 mg/dL 70-105 CALCIUM (BEAKER) (test hent=127) 10.0 mg/dL 8.4-10.2 AST (SGOT) (BEAKER) (test zbie=865) 23 U/L 5-34 ALT (SGPT) (BEAKER) (test sjgd=705) 39 U/L 6-55 EGFR (BEAKER) (test cxuq=9888) 70 mL/min/1.73 sq m ESTIMATED GFR IS NOT ACCURATE CREATININE CLEARANCE IN PREDICTING GLOMERULAR FILTRATION RATE. ESTIMATED GFR IS NOT APPLICABLE FOR DIALYSIS PATIENTS. BILIRUBIN, [id number] 09:02:00* Test Item Value Reference Range Comments BILIRUBIN DIRECT (BEAKER) (test yqtp=574) 0.2 mg/dL 0.1-0.5 CBC W/PLT COUNT & AUTO [id number] 08:43:00* Test Item Value Reference Range Comments WHITE BLOOD CELL COUNT (BEAKER) (test stzs=492) 8.0 K/ L 3.5-10.5 RED BLOOD CELL COUNT (BEAKER) (test witc=672) 4.69 M/ L 4.63-6.08 HEMOGLOBIN (BEAKER) (test qybn=664) 13.9 GM/DL 13.7-17.5 HEMATOCRIT (BEAKER) (test syjl=691) 43.7 % 40.1-51.0 MEAN CORPUSCULAR VOLUME (BEAKER) (test bvmb=607) 93.2 fL 79.0-92.2 MEAN CORPUSCULAR HEMOGLOBIN (BEAKER) (test vgcr=907) 29.6 pg 25.7-32.2 MEAN CORPUSCULAR HEMOGLOBIN CONC (BEAKER) (test tvth=980) 31.8 GM/DL 32.3-36.5 RED CELL DISTRIBUTION WIDTH (BEAKER) (test zuvp=236) 14.7 % 11.6-14.4 PLATELET COUNT (BEAKER) (test rhdl=061) 251 K/CU MM 150-450 MEAN PLATELET VOLUME (BEAKER) (test oyey=219) 11.0 fL 9.4-12.4 NUCLEATED RED BLOOD CELLS (BEAKER) (test hncc=496) 0 /100 WBC 0-0 NEUTROPHILS RELATIVE PERCENT (BEAKER) (test aahz=208) 61 % LYMPHOCYTES RELATIVE PERCENT (BEAKER) (test nqco=805) 29 % MONOCYTES RELATIVE PERCENT (BEAKER) (test fvlf=685) 9 % EOSINOPHILS RELATIVE PERCENT (BEAKER) (test lykr=795) 1 % BASOPHILS RELATIVE PERCENT (BEAKER) (test ypcb=886) 1 % NEUTROPHILS ABSOLUTE COUNT (BEAKER) (test inzh=405) 4.85 K/ L 1.78-5.38 LYMPHOCYTES ABSOLUTE COUNT (BEAKER) (test wrri=689) 2.28 K/ L 1.32-3.57 MONOCYTES ABSOLUTE COUNT (BEAKER) (test cfih=814) 0.70 K/ L 0.30-0.82 EOSINOPHILS ABSOLUTE COUNT (BEAKER) (test ndsu=336) 0.09 K/ L 0.04-0.54 BASOPHILS ABSOLUTE COUNT (BEAKER) (test mapo=259) 0.06 K/ L 0.01-0.08 IMMATURE GRANULOCYTES-RELATIVE PERCENT (BEAKER) (test qqqn=7850) 0 % 0-1 TACROLIMUS [id number] 11:48:00* Test Item Value Reference Range Comments TACROLIMUS BLOOD (BEAKER) (test zujy=829) 6.6 ng/mL 10.0-20.0 [id number] 08:52:00* Test Item Value Reference Range Comments MAGNESIUM (BEAKER) (test hbrr=485) 1.4 mg/dL 1.6-2.6 COMPREHENSIVE METABOLIC [id number] 08:52:00* Test Item Value Reference Range Comments TOTAL PROTEIN (BEAKER) (test svxl=624) 8.1 gm/dL 6.0-8.3 ALBUMIN (BEAKER) (test msor=7645) 4.4 g/dL 3.5-5.0 ALKALINE PHOSPHATASE (BEAKER) (test vejg=470) 93 U/L 40-150 BILIRUBIN TOTAL (BEAKER) (test suao=352) 0.3 mg/dL 0.2-1.2 SODIUM (BEAKER) (test pegi=367) 137 meq/L 136-145 POTASSIUM (BEAKER) (test exae=757) 3.5 meq/L 3.5-5.1 CHLORIDE (BEAKER) (test dvzn=162) 108 meq/L 98-107 CO2 (BEAKER) (test yaia=054) 20 meq/L 22-29 BLOOD UREA NITROGEN (BEAKER) (test yljk=858) 16 mg/dL 7-21 CREATININE (BEAKER) (test wasq=827) 1.05 mg/dL 0.57-1.25 GLUCOSE RANDOM (BEAKER) (test dhco=380) 104 mg/dL 70-105 CALCIUM (BEAKER) (test vfla=206) 9.5 mg/dL 8.4-10.2 AST (SGOT) (BEAKER) (test viqo=413) 22 U/L 5-34 ALT (SGPT) (BEAKER) (test ufht=595) 37 U/L 6-55 EGFR (BEAKER) (test hdll=0460) 71 mL/min/1.73 sq m ESTIMATED GFR IS NOT ACCURATE CREATININE CLEARANCE IN PREDICTING GLOMERULAR FILTRATION RATE. ESTIMATED GFR IS NOT APPLICABLE FOR DIALYSIS PATIENTS. BILIRUBIN, [id number] 08:52:00* Test Item Value Reference Range Comments BILIRUBIN DIRECT (BEAKER) (test aqom=064) 0.1 mg/dL 0.1-0.5 CBC W/PLT COUNT & AUTO [id number] 08:24:00* Test Item Value Reference Range Comments WHITE BLOOD CELL COUNT (BEAKER) (test wwgc=986) 7.0 K/ L 3.5-10.5 RED BLOOD CELL COUNT (BEAKER) (test berk=253) 4.93 M/ L 4.63-6.08 HEMOGLOBIN (BEAKER) (test ihgv=382) 14.1 GM/DL 13.7-17.5 HEMATOCRIT (BEAKER) (test fsza=260) 44.5 % 40.1-51.0 MEAN CORPUSCULAR VOLUME (BEAKER) (test lcke=951) 90.3 fL 79.0-92.2 MEAN CORPUSCULAR HEMOGLOBIN (BEAKER) (test kvke=441) 28.6 pg 25.7-32.2 MEAN CORPUSCULAR HEMOGLOBIN CONC (BEAKER) (test jful=080) 31.7 GM/DL 32.3-36.5 RED CELL DISTRIBUTION WIDTH (BEAKER) (test pdar=482) 14.9 % 11.6-14.4 PLATELET COUNT (BEAKER) (test cyvv=013) 257 K/CU MM 150-450 MEAN PLATELET VOLUME (BEAKER) (test fjfs=853) 10.7 fL 9.4-12.4 NUCLEATED RED BLOOD CELLS (BEAKER) (test auyg=849) 0 /100 WBC 0-0 NEUTROPHILS RELATIVE PERCENT (BEAKER) (test lvjt=472) 63 % LYMPHOCYTES RELATIVE PERCENT (BEAKER) (test zunz=177) 26 % MONOCYTES RELATIVE PERCENT (BEAKER) (test fjaj=476) 9 % EOSINOPHILS RELATIVE PERCENT (BEAKER) (test xraz=395) 1 % BASOPHILS RELATIVE PERCENT (BEAKER) (test pyup=076) 1 % NEUTROPHILS ABSOLUTE COUNT (BEAKER) (test tcfr=848) 4.38 K/ L 1.78-5.38 LYMPHOCYTES ABSOLUTE COUNT (BEAKER) (test kyjs=867) 1.84 K/ L 1.32-3.57 MONOCYTES ABSOLUTE COUNT (BEAKER) (test tbgw=454) 0.61 K/ L 0.30-0.82 EOSINOPHILS ABSOLUTE COUNT (BEAKER) (test rcbh=699) 0.07 K/ L 0.04-0.54 BASOPHILS ABSOLUTE COUNT (BEAKER) (test qjbj=435) 0.06 K/ L 0.01-0.08 IMMATURE GRANULOCYTES-RELATIVE PERCENT (BEAKER) (test zbqc=8706) 0 % 0-1 TACROLIMUS [id number] 12:36:00* Test Item Value Reference Range Comments TACROLIMUS BLOOD (BEAKER) (test xfqd=275) 5.6 ng/mL 10.0-20.0 [id number] 08:24:00* Test Item Value Reference Range Comments MAGNESIUM (BEAKER) (test ykul=681) 1.7 mg/dL 1.6-2.6 COMPREHENSIVE METABOLIC [id number] 08:24:00* Test Item Value Reference Range Comments TOTAL PROTEIN (BEAKER) (test cczx=734) 8.3 gm/dL 6.0-8.3 ALBUMIN (BEAKER) (test rnjm=2332) 4.4 g/dL 3.5-5.0 ALKALINE PHOSPHATASE (BEAKER) (test yfhg=066) 84 U/L 40-150 BILIRUBIN TOTAL (BEAKER) (test vqmw=526) 0.5 mg/dL 0.2-1.2 SODIUM (BEAKER) (test mwcw=469) 139 meq/L 136-145 POTASSIUM (BEAKER) (test kfae=925) 3.8 meq/L 3.5-5.1 CHLORIDE (BEAKER) (test tord=957) 107 meq/L 98-107 CO2 (BEAKER) (test dprh=062) 22 meq/L 22-29 BLOOD UREA NITROGEN (BEAKER) (test pngh=083) 12 mg/dL 7-21 CREATININE (BEAKER) (test ccwc=788) 1.05 mg/dL 0.57-1.25 GLUCOSE RANDOM (BEAKER) (test unhp=345) 96 mg/dL 70-105 CALCIUM (BEAKER) (test wzhe=652) 9.9 mg/dL 8.4-10.2 AST (SGOT) (BEAKER) (test bdlk=008) 24 U/L 5-34 ALT (SGPT) (BEAKER) (test oqla=567) 41 U/L 6-55 EGFR (BEAKER) (test wgsc=6070) 72 mL/min/1.73 sq m ESTIMATED GFR IS NOT ACCURATE CREATININE CLEARANCE IN PREDICTING GLOMERULAR FILTRATION RATE. ESTIMATED GFR IS NOT APPLICABLE FOR DIALYSIS PATIENTS. BILIRUBIN, [id number] 08:24:00* Test Item Value Reference Range Comments BILIRUBIN DIRECT (BEAKER) (test nmfq=767) 0.2 mg/dL 0.1-0.5 CBC W/PLT COUNT & AUTO [id number] 08:01:00* Test Item Value Reference Range Comments WHITE BLOOD CELL COUNT (BEAKER) (test zblu=081) 7.5 K/ L 3.5-10.5 RED BLOOD CELL COUNT (BEAKER) (test aykt=010) 4.96 M/ L 4.63-6.08 HEMOGLOBIN (BEAKER) (test emqi=983) 14.2 GM/DL 13.7-17.5 HEMATOCRIT (BEAKER) (test fmfs=786) 45.0 % 40.1-51.0 MEAN CORPUSCULAR VOLUME (BEAKER) (test mwvr=339) 90.7 fL 79.0-92.2 MEAN CORPUSCULAR HEMOGLOBIN (BEAKER) (test ujym=337) 28.6 pg 25.7-32.2 MEAN CORPUSCULAR HEMOGLOBIN CONC (BEAKER) (test pkpz=572) 31.6 GM/DL 32.3-36.5 RED CELL DISTRIBUTION WIDTH (BEAKER) (test nvdf=414) 14.8 % 11.6-14.4 PLATELET COUNT (BEAKER) (test gykn=395) 249 K/CU MM 150-450 MEAN PLATELET VOLUME (BEAKER) (test ujhu=100) 10.6 fL 9.4-12.4 NUCLEATED RED BLOOD CELLS (BEAKER) (test daax=821) 0 /100 WBC 0-0 NEUTROPHILS RELATIVE PERCENT (BEAKER) (test ggzg=689) 65 % LYMPHOCYTES RELATIVE PERCENT (BEAKER) (test noqj=351) 24 % MONOCYTES RELATIVE PERCENT (BEAKER) (test bvhm=947) 8 % EOSINOPHILS RELATIVE PERCENT (BEAKER) (test wozk=073) 1 % BASOPHILS RELATIVE PERCENT (BEAKER) (test jlrl=056) 1 % NEUTROPHILS ABSOLUTE COUNT (BEAKER) (test gcvn=459) 4.88 K/ L 1.78-5.38 LYMPHOCYTES ABSOLUTE COUNT (BEAKER) (test konc=559) 1.81 K/ L 1.32-3.57 MONOCYTES ABSOLUTE COUNT (BEAKER) (test nmai=071) 0.61 K/ L 0.30-0.82 EOSINOPHILS ABSOLUTE COUNT (BEAKER) (test fzwo=441) 0.08 K/ L 0.04-0.54 BASOPHILS ABSOLUTE COUNT (BEAKER) (test hjhj=638) 0.06 K/ L 0.01-0.08 IMMATURE GRANULOCYTES-RELATIVE PERCENT (BEAKER) (test esic=0248) 0 % 0-1 TACROLIMUS [id number] 12:01:00* Test Item Value Reference Range Comments TACROLIMUS BLOOD (BEAKER) (test xplj=525) 6.7 ng/mL 10.0-20.0 [id number] 09:17:00* Test Item Value Reference Range Comments MAGNESIUM (BEAKER) (test tnza=442) 1.7 mg/dL 1.6-2.6 Specimen slightly hemolyzed COMPREHENSIVE METABOLIC [id number] 09:17:00* Test Item Value Reference Range Comments TOTAL PROTEIN (BEAKER) (test dejg=618) 8.1 gm/dL 6.0-8.3 Specimen slightly hemolyzed ALBUMIN (BEAKER) (test rlvj=0066) 4.2 g/dL 3.5-5.0 Specimen slightly hemolyzed ALKALINE PHOSPHATASE (BEAKER) (test unbz=072) 84 U/L 40-150 BILIRUBIN TOTAL (BEAKER) (test vsyh=681) 0.4 mg/dL 0.2-1.2 Specimen slightly hemolyzed SODIUM (BEAKER) (test vleb=098) 139 meq/L 136-145 POTASSIUM (BEAKER) (test psvy=493) 3.9 meq/L 3.5-5.1 Specimen slightly hemolyzed CHLORIDE (BEAKER) (test cpyt=777) 108 meq/L 98-107 CO2 (BEAKER) (test kwrr=691) 20 meq/L 22-29 BLOOD UREA NITROGEN (BEAKER) (test yvvj=110) 19 mg/dL 7-21 CREATININE (BEAKER) (test xopj=893) 1.00 mg/dL 0.57-1.25 Specimen slightly hemolyzed GLUCOSE RANDOM (BEAKER) (test xvyf=976) 98 mg/dL 70-105 CALCIUM (BEAKER) (test eysc=660) 9.5 mg/dL 8.4-10.2 AST (SGOT) (BEAKER) (test jgkb=987) 24 U/L 5-34 Specimen slightly hemolyzed ALT (SGPT) (BEAKER) (test auln=911) 33 U/L 6-55 Specimen slightly hemolyzed EGFR (BEAKER) (test ywqt=6629) 76 mL/min/1.73 sq m ESTIMATED GFR IS NOT ACCURATE CREATININE CLEARANCE IN PREDICTING GLOMERULAR FILTRATION RATE. ESTIMATED GFR IS NOT APPLICABLE FOR DIALYSIS PATIENTS. BILIRUBIN, [id number] 09:17:00* Test Item Value Reference Range Comments BILIRUBIN DIRECT (BEAKER) (test ztnx=956) 0.2 mg/dL 0.1-0.5 Specimen slightly hemolyzed CBC W/PLT COUNT & AUTO [id number] 08:50:00* Test Item Value Reference Range Comments WHITE BLOOD CELL COUNT (BEAKER) (test doei=436) 6.6 K/ L 3.5-10.5 RED BLOOD CELL COUNT (BEAKER) (test wkvi=876) 4.71 M/ L 4.63-6.08 HEMOGLOBIN (BEAKER) (test pgci=648) 13.9 GM/DL 13.7-17.5 HEMATOCRIT (BEAKER) (test evtu=447) 43.1 % 40.1-51.0 MEAN CORPUSCULAR VOLUME (BEAKER) (test csoz=833) 91.5 fL 79.0-92.2 MEAN CORPUSCULAR HEMOGLOBIN (BEAKER) (test lmre=520) 29.5 pg 25.7-32.2 MEAN CORPUSCULAR HEMOGLOBIN CONC (BEAKER) (test lzcj=414) 32.3 GM/DL 32.3-36.5 RED CELL DISTRIBUTION WIDTH (BEAKER) (test xsbe=270) 14.2 % 11.6-14.4 PLATELET COUNT (BEAKER) (test evgj=899) 260 K/CU MM 150-450 MEAN PLATELET VOLUME (BEAKER) (test azjx=114) 10.6 fL 9.4-12.4 NUCLEATED RED BLOOD CELLS (BEAKER) (test plnv=089) 0 /100 WBC 0-0 NEUTROPHILS RELATIVE PERCENT (BEAKER) (test zxws=997) 58 % LYMPHOCYTES RELATIVE PERCENT (BEAKER) (test dbfj=533) 30 % MONOCYTES RELATIVE PERCENT (BEAKER) (test sqhp=497) 10 % EOSINOPHILS RELATIVE PERCENT (BEAKER) (test tpav=684) 1 % BASOPHILS RELATIVE PERCENT (BEAKER) (test epgg=067) 1 % NEUTROPHILS ABSOLUTE COUNT (BEAKER) (test jgpp=557) 3.86 K/ L 1.78-5.38 LYMPHOCYTES ABSOLUTE COUNT (BEAKER) (test kgqx=611) 1.99 K/ L 1.32-3.57 MONOCYTES ABSOLUTE COUNT (BEAKER) (test zpwq=199) 0.63 K/ L 0.30-0.82 EOSINOPHILS ABSOLUTE COUNT (BEAKER) (test rzvz=653) 0.07 K/ L 0.04-0.54 BASOPHILS ABSOLUTE COUNT (BEAKER) (test sbsw=612) 0.06 K/ L 0.01-0.08 IMMATURE GRANULOCYTES-RELATIVE PERCENT (BEAKER) (test nbpi=6641) 1 % 0-1 TACROLIMUS [id number] 14:42:00* Test Item Value Reference Range Comments TACROLIMUS BLOOD (BEAKER) (test nzid=227) 5.4 ng/mL 10.0-20.0 COMPREHENSIVE METABOLIC [id number] 10:12:00* Test Item Value Reference Range Comments TOTAL PROTEIN (BEAKER) (test htbh=317) 8.0 gm/dL 6.0-8.3 ALBUMIN (BEAKER) (test ngvc=2063) 4.3 g/dL 3.5-5.0 ALKALINE PHOSPHATASE (BEAKER) (test vhbb=856) 101 U/L 40-150 BILIRUBIN TOTAL (BEAKER) (test ounu=020) 0.4 mg/dL 0.2-1.2 SODIUM (BEAKER) (test fdqn=195) 141 meq/L 136-145 POTASSIUM (BEAKER) (test ydzp=827) 4.1 meq/L 3.5-5.1 CHLORIDE (BEAKER) (test wfcq=326) 109 meq/L 98-107 CO2 (BEAKER) (test vwyq=447) 22 meq/L 22-29 BLOOD UREA NITROGEN (BEAKER) (test bosk=826) 18 mg/dL 7-21 CREATININE (BEAKER) (test mghz=651) 1.11 mg/dL 0.57-1.25 GLUCOSE RANDOM (BEAKER) (test bxhx=512) 105 mg/dL 70-105 CALCIUM (BEAKER) (test kkhf=371) 9.4 mg/dL 8.4-10.2 AST (SGOT) (BEAKER) (test jcin=636) 21 U/L 5-34 ALT (SGPT) (BEAKER) (test tptr=449) 30 U/L 6-55 EGFR (BEAKER) (test fnjh=7358) 67 mL/min/1.73 sq m ESTIMATED GFR IS NOT ACCURATE CREATININE CLEARANCE IN PREDICTING GLOMERULAR FILTRATION RATE. ESTIMATED GFR IS NOT APPLICABLE FOR DIALYSIS PATIENTS. BILIRUBIN, [id number] 10:12:00* Test Item Value Reference Range Comments BILIRUBIN DIRECT (BEAKER) (test msko=877) 0.1 mg/dL 0.1-0.5 [id number] 10:11:00* Test Item Value Reference Range Comments MAGNESIUM (BEAKER) (test fhus=702) 1.7 mg/dL 1.6-2.6 CBC W/PLT COUNT & AUTO [id number] 09:55:00* Test Item Value Reference Range Comments WHITE BLOOD CELL COUNT (BEAKER) (test wrxp=752) 7.1 K/ L 3.5-10.5 RED BLOOD CELL COUNT (BEAKER) (test hyxa=601) 4.62 M/ L 4.63-6.08 HEMOGLOBIN (BEAKER) (test hnjy=175) 13.7 GM/DL 13.7-17.5 HEMATOCRIT (BEAKER) (test fzvn=190) 43.1 % 40.1-51.0 MEAN CORPUSCULAR VOLUME (BEAKER) (test dgqq=224) 93.3 fL 79.0-92.2 MEAN CORPUSCULAR HEMOGLOBIN (BEAKER) (test dgrl=029) 29.7 pg 25.7-32.2 MEAN CORPUSCULAR HEMOGLOBIN CONC (BEAKER) (test kvdh=137) 31.8 GM/DL 32.3-36.5 RED CELL DISTRIBUTION WIDTH (BEAKER) (test karx=385) 14.6 % 11.6-14.4 PLATELET COUNT (BEAKER) (test ovvi=758) 263 K/CU MM 150-450 MEAN PLATELET VOLUME (BEAKER) (test yiqj=864) 10.8 fL 9.4-12.4 NUCLEATED RED BLOOD CELLS (BEAKER) (test dmml=811) 0 /100 WBC 0-0 NEUTROPHILS RELATIVE PERCENT (BEAKER) (test lizw=097) 58 % LYMPHOCYTES RELATIVE PERCENT (BEAKER) (test ilev=871) 29 % MONOCYTES RELATIVE PERCENT (BEAKER) (test ybmf=058) 9 % EOSINOPHILS RELATIVE PERCENT (BEAKER) (test vrpl=938) 2 % BASOPHILS RELATIVE PERCENT (BEAKER) (test qtca=229) 1 % NEUTROPHILS ABSOLUTE COUNT (BEAKER) (test gjvt=328) 4.08 K/ L 1.78-5.38 LYMPHOCYTES ABSOLUTE COUNT (BEAKER) (test ghiq=154) 2.07 K/ L 1.32-3.57 MONOCYTES ABSOLUTE COUNT (BEAKER) (test avmw=325) 0.66 K/ L 0.30-0.82 EOSINOPHILS ABSOLUTE COUNT (BEAKER) (test kiuw=610) 0.12 K/ L 0.04-0.54 BASOPHILS ABSOLUTE COUNT (BEAKER) (test bcjp=009) 0.09 K/ L 0.01-0.08 IMMATURE GRANULOCYTES-RELATIVE PERCENT (BEAKER) (test rxih=1777) 1 % 0-1 TACROLIMUS [id number] 13:52:00* Test Item Value Reference Range Comments TACROLIMUS BLOOD (BEAKER) (test wobg=427) 9.4 ng/mL 10.0-20.0 HEPATITIS C [id number] 10:44:00* Test Item Value Reference Range Comments HEPATITIS C ANTIBODY (BEAKER) (test bkij=862) Nonreactive Nonreactive [id number] 09:57:00* Test Item Value Reference Range Comments MAGNESIUM (BEAKER) (test fvog=406) 1.4 mg/dL 1.6-2.6 COMPREHENSIVE METABOLIC [id number] 09:57:00* Test Item Value Reference Range Comments TOTAL PROTEIN (BEAKER) (test rufc=300) 8.0 gm/dL 6.0-8.3 ALBUMIN (BEAKER) (test mpky=3161) 4.2 g/dL 3.5-5.0 ALKALINE PHOSPHATASE (BEAKER) (test bwbk=628) 84 U/L 40-150 BILIRUBIN TOTAL (BEAKER) (test pqup=480) 0.5 mg/dL 0.2-1.2 SODIUM (BEAKER) (test oego=344) 141 meq/L 136-145 POTASSIUM (BEAKER) (test ivnq=561) 4.2 meq/L 3.5-5.1 CHLORIDE (BEAKER) (test nzyq=020) 106 meq/L 98-107 CO2 (BEAKER) (test wvad=187) 25 meq/L 22-29 BLOOD UREA NITROGEN (BEAKER) (test guaj=898) 16 mg/dL 7-21 CREATININE (BEAKER) (test fbkd=862) 1.15 mg/dL 0.57-1.25 GLUCOSE RANDOM (BEAKER) (test oixy=854) 100 mg/dL 70-105 CALCIUM (BEAKER) (test ofay=333) 9.9 mg/dL 8.4-10.2 AST (SGOT) (BEAKER) (test ztks=421) 17 U/L 5-34 ALT (SGPT) (BEAKER) (test qpwx=171) 29 U/L 6-55 EGFR (BEAKER) (test cttj=1175) 64 mL/min/1.73 sq m ESTIMATED GFR IS NOT ACCURATE CREATININE CLEARANCE IN PREDICTING GLOMERULAR FILTRATION RATE. ESTIMATED GFR IS NOT APPLICABLE FOR DIALYSIS PATIENTS. LIPID [id number] 09:57:00* Test Item Value Reference Range Comments TRIGLYCERIDES (BEAKER) (test lvdy=724) 140 mg/dL CHOLESTEROL (BEAKER) (test myms=762) 177 mg/dL HDL CHOLESTEROL (BEAKER) (test cvek=386) 39 mg/dL LDL CHOLESTEROL CALCULATED (BEAKER) (test jmpg=019) 110 mg/dL Triglyceride Reference Range: Low Risk <150 Borderline 150-199 High Risk 200-499 Very High Risk >=500Cholesterol Reference Range: Low Risk <200 Borderline 200-239 High Risk >240HDL Cholesterol Reference Range: Low Risk >=60 High Risk <40LDL Cholesterol Reference Range: Optimal <100 Near Optimal 100-129 Borderline 130-159 High 160-189 Very High >=190 BILIRUBIN, [id number] 09:57:00* Test Item Value Reference Range Comments BILIRUBIN DIRECT (BEAKER) (test lphd=101) 0.2 mg/dL 0.1-0.5 CBC W/PLT COUNT & AUTO [id number] 09:22:00* Test Item Value Reference Range Comments WHITE BLOOD CELL COUNT (BEAKER) (test kvgq=391) 7.2 K/ L 3.5-10.5 RED BLOOD CELL COUNT (BEAKER) (test orsj=566) 4.75 M/ L 4.63-6.08 HEMOGLOBIN (BEAKER) (test znvf=605) 13.7 GM/DL 13.7-17.5 HEMATOCRIT (BEAKER) (test gxwi=493) 43.8 % 40.1-51.0 MEAN CORPUSCULAR VOLUME (BEAKER) (test vewv=439) 92.2 fL 79.0-92.2 MEAN CORPUSCULAR HEMOGLOBIN (BEAKER) (test ryrs=478) 28.8 pg 25.7-32.2 MEAN CORPUSCULAR HEMOGLOBIN CONC (BEAKER) (test lspv=147) 31.3 GM/DL 32.3-36.5 RED CELL DISTRIBUTION WIDTH (BEAKER) (test cned=994) 14.4 % 11.6-14.4 PLATELET COUNT (BEAKER) (test irtn=660) 248 K/CU MM 150-450 MEAN PLATELET VOLUME (BEAKER) (test xxoc=560) 10.6 fL 9.4-12.4 NUCLEATED RED BLOOD CELLS (BEAKER) (test real=219) 0 /100 WBC 0-0 NEUTROPHILS RELATIVE PERCENT (BEAKER) (test mrwj=066) 65 % LYMPHOCYTES RELATIVE PERCENT (BEAKER) (test zgqa=967) 26 % MONOCYTES RELATIVE PERCENT (BEAKER) (test ujre=297) 7 % EOSINOPHILS RELATIVE PERCENT (BEAKER) (test xujw=012) 1 % BASOPHILS RELATIVE PERCENT (BEAKER) (test onby=604) 1 % NEUTROPHILS ABSOLUTE COUNT (BEAKER) (test ocix=864) 4.67 K/ L 1.78-5.38 LYMPHOCYTES ABSOLUTE COUNT (BEAKER) (test hyoq=135) 1.86 K/ L 1.32-3.57 MONOCYTES ABSOLUTE COUNT (BEAKER) (test cqxj=386) 0.50 K/ L 0.30-0.82 EOSINOPHILS ABSOLUTE COUNT (BEAKER) (test gpxl=555) 0.08 K/ L 0.04-0.54 BASOPHILS ABSOLUTE COUNT (BEAKER) (test uymq=248) 0.06 K/ L 0.01-0.08 IMMATURE GRANULOCYTES-RELATIVE PERCENT (BEAKER) (test tngq=1921) 1 % 0-1 TACROLIMUS [id number] 12:36:00* Test Item Value Reference Range Comments TACROLIMUS BLOOD (BEAKER) (test gybn=971) 9.4 ng/mL 10.0-20.0 [id number] 09:18:00* Test Item Value Reference Range Comments MAGNESIUM (BEAKER) (test rfje=633) 1.6 mg/dL 1.6-2.6 COMPREHENSIVE METABOLIC [id number] 09:18:00* Test Item Value Reference Range Comments TOTAL PROTEIN (BEAKER) (test paoh=025) 7.9 gm/dL 6.0-8.3 ALBUMIN (BEAKER) (test orjp=1493) 4.3 g/dL 3.5-5.0 ALKALINE PHOSPHATASE (BEAKER) (test emka=284) 82 U/L 40-150 BILIRUBIN TOTAL (BEAKER) (test fkoc=652) 0.6 mg/dL 0.2-1.2 SODIUM (BEAKER) (test fcns=015) 138 meq/L 136-145 POTASSIUM (BEAKER) (test fbhx=194) 4.0 meq/L 3.5-5.1 CHLORIDE (BEAKER) (test inji=394) 107 meq/L 98-107 CO2 (BEAKER) (test uqtt=699) 21 meq/L 22-29 BLOOD UREA NITROGEN (BEAKER) (test mtua=243) 16 mg/dL 7-21 CREATININE (BEAKER) (test rylq=207) 1.11 mg/dL 0.57-1.25 GLUCOSE RANDOM (BEAKER) (test dwpf=738) 96 mg/dL 70-105 CALCIUM (BEAKER) (test fgrc=129) 9.5 mg/dL 8.4-10.2 AST (SGOT) (BEAKER) (test ykqr=061) 21 U/L 5-34 ALT (SGPT) (BEAKER) (test fowg=533) 33 U/L 6-55 EGFR (BEAKER) (test xjht=6225) 67 mL/min/1.73 sq m ESTIMATED GFR IS NOT ACCURATE CREATININE CLEARANCE IN PREDICTING GLOMERULAR FILTRATION RATE. ESTIMATED GFR IS NOT APPLICABLE FOR DIALYSIS PATIENTS. BILIRUBIN, [id number] 09:18:00* Test Item Value Reference Range Comments BILIRUBIN DIRECT (BEAKER) (test dyca=475) 0.2 mg/dL 0.1-0.5 CBC W/PLT COUNT & AUTO [id number] 08:38:00* Test Item Value Reference Range Comments WHITE BLOOD CELL COUNT (BEAKER) (test ywpn=892) 7.6 K/ L 4.0-10.0 RED BLOOD CELL COUNT (BEAKER) (test swqy=724) 5.04 M/ L 4.20-5.80 HEMOGLOBIN (BEAKER) (test msid=820) 15.0 GM/DL 13.0-16.8 HEMATOCRIT (BEAKER) (test abcr=617) 45.9 % 40.0-50.0 MEAN CORPUSCULAR VOLUME (BEAKER) (test bnan=958) 91.1 fL 82.0-98.0 MEAN CORPUSCULAR HEMOGLOBIN (BEAKER) (test esdy=872) 29.8 pg 27.0-33.0 MEAN CORPUSCULAR HEMOGLOBIN CONC (BEAKER) (test dikr=567) 32.7 GM/DL 32.0-36.0 RED CELL DISTRIBUTION WIDTH (BEAKER) (test mqtw=838) 15.2 % 10.3-14.2 PLATELET COUNT (BEAKER) (test ydbl=526) 222 K/CU MM 150-430 MEAN PLATELET VOLUME (BEAKER) (test sbmg=858) 8.1 fL 6.5-10.5 NUCLEATED RED BLOOD CELLS (BEAKER) (test pefj=892) 0 /100 WBC 0-0 NEUTROPHILS RELATIVE PERCENT (BEAKER) (test fdlr=212) 65 % LYMPHOCYTES RELATIVE PERCENT (BEAKER) (test pila=515) 26 % MONOCYTES RELATIVE PERCENT (BEAKER) (test lexj=761) 8 % EOSINOPHILS RELATIVE PERCENT (BEAKER) (test xllb=723) 1 % BASOPHILS RELATIVE PERCENT (BEAKER) (test ithc=693) 0 % NEUTROPHILS ABSOLUTE COUNT (BEAKER) (test kmof=135) 4.95 K/ L 1.80-8.00 LYMPHOCYTES ABSOLUTE COUNT (BEAKER) (test hfbb=006) 1.94 K/ L 1.48-4.50 MONOCYTES ABSOLUTE COUNT (BEAKER) (test oxyh=551) 0.63 K/ L 0.00-1.30 EOSINOPHILS ABSOLUTE COUNT (BEAKER) (test yetn=842) 0.07 K/ L 0.00-0.50 BASOPHILS ABSOLUTE COUNT (BEAKER) (test olhx=788) 0.02 K/ L 0.00-0.20 0.00TACROLIMUS [id number] 11:20:00* Test Item Value Reference Range Comments TACROLIMUS BLOOD (BEAKER) (test hbyx=404) 8.1 ng/mL 10.0-20.0 [id number] 09:25:00* Test Item Value Reference Range Comments MAGNESIUM (BEAKER) (test jdor=597) 1.8 mg/dL 1.6-2.6 COMPREHENSIVE METABOLIC [id number] 09:25:00* Test Item Value Reference Range Comments TOTAL PROTEIN (BEAKER) (test bclz=143) 7.9 gm/dL 6.0-8.3 ALBUMIN (BEAKER) (test yubr=8650) 4.2 g/dL 3.5-5.0 ALKALINE PHOSPHATASE (BEAKER) (test afaa=002) 99 U/L 40-150 BILIRUBIN TOTAL (BEAKER) (test mnky=581) 0.4 mg/dL 0.2-1.2 SODIUM (BEAKER) (test kpzv=530) 139 meq/L 136-145 POTASSIUM (BEAKER) (test lfiz=658) 4.1 meq/L 3.5-5.1 CHLORIDE (BEAKER) (test ldup=534) 107 meq/L 98-107 CO2 (BEAKER) (test aaax=084) 23 meq/L 22-29 BLOOD UREA NITROGEN (BEAKER) (test dbtl=088) 13 mg/dL 7-21 CREATININE (BEAKER) (test yotx=494) 0.94 mg/dL 0.57-1.25 GLUCOSE RANDOM (BEAKER) (test ipuy=368) 96 mg/dL 70-105 CALCIUM (BEAKER) (test lmay=228) 9.4 mg/dL 8.4-10.2 AST (SGOT) (BEAKER) (test uima=207) 26 U/L 5-34 ALT (SGPT) (BEAKER) (test bbyx=547) 33 U/L 6-55 EGFR (BEAKER) (test bnqo=7903) 82 mL/min/1.73 sq m ESTIMATED GFR IS NOT ACCURATE CREATININE CLEARANCE IN PREDICTING GLOMERULAR FILTRATION RATE. ESTIMATED GFR IS NOT APPLICABLE FOR DIALYSIS PATIENTS. BILIRUBIN, [id number] 09:25:00* Test Item Value Reference Range Comments BILIRUBIN DIRECT (BEAKER) (test mtfd=155) 0.2 mg/dL 0.1-0.5 CBC W/PLT COUNT & AUTO [id number] 09:04:00* Test Item Value Reference Range Comments WHITE BLOOD CELL COUNT (BEAKER) (test gnbc=470) 7.1 K/ L 4.0-10.0 RED BLOOD CELL COUNT (BEAKER) (test tqom=798) 4.89 M/ L 4.20-5.80 HEMOGLOBIN (BEAKER) (test cffj=727) 14.2 GM/DL 13.0-16.8 HEMATOCRIT (BEAKER) (test zxny=990) 45.3 % 40.0-50.0 MEAN CORPUSCULAR VOLUME (BEAKER) (test dryp=599) 92.5 fL 82.0-98.0 MEAN CORPUSCULAR HEMOGLOBIN (BEAKER) (test done=914) 29.0 pg 27.0-33.0 MEAN CORPUSCULAR HEMOGLOBIN CONC (BEAKER) (test kiha=838) 31.3 GM/DL 32.0-36.0 RED CELL DISTRIBUTION WIDTH (BEAKER) (test ekdd=827) 13.6 % 10.3-14.2 PLATELET COUNT (BEAKER) (test rkje=070) 213 K/CU MM 150-430 MEAN PLATELET VOLUME (BEAKER) (test wsln=190) 8.5 fL 6.5-10.5 NUCLEATED RED BLOOD CELLS (BEAKER) (test xrcy=106) 0 /100 WBC 0-0 NEUTROPHILS RELATIVE PERCENT (BEAKER) (test hdlb=760) 60 % LYMPHOCYTES RELATIVE PERCENT (BEAKER) (test jvdl=212) 30 % MONOCYTES RELATIVE PERCENT (BEAKER) (test vjyz=005) 8 % EOSINOPHILS RELATIVE PERCENT (BEAKER) (test yxcz=120) 1 % BASOPHILS RELATIVE PERCENT (BEAKER) (test qfqf=169) 0 % NEUTROPHILS ABSOLUTE COUNT (BEAKER) (test mfbs=603) 4.26 K/ L 1.80-8.00 LYMPHOCYTES ABSOLUTE COUNT (BEAKER) (test xmbq=141) 2.15 K/ L 1.48-4.50 MONOCYTES ABSOLUTE COUNT (BEAKER) (test pisu=893) 0.54 K/ L 0.00-1.30 EOSINOPHILS ABSOLUTE COUNT (BEAKER) (test euyl=274) 0.10 K/ L 0.00-0.50 BASOPHILS ABSOLUTE COUNT (BEAKER) (test bhjx=738) 0.03 K/ L 0.00-0.20 0.00
[2018-08-30] MEDS ORDERED: PRAVASTATIN SOD40 MG PO (15:18)
[2018-08-30] MEDS ORDERED: MAGNESIUM OXID400 MG PO (15:18)
[2018-08-30] MEDS ORDERED: MYCOPHENOLATE250 MG PO (15:18)
[2018-08-30] MEDS ORDERED: PROGRAF1 MG PO (15:18)
[2018-08-30] MEDS ORDERED: LEVETIRACETAM500 MG PO (15:18)
--- NOTE | 2018-08-30 15:55 | Diagnostic Imaging Report ---
EXAMINATION: CXR 2 VIEW - HOPD INDICATION: Right arm numbness. COMPARISON: None FINDINGS: TUBES and LINES: None. LUNGS: Lungs are well inflated. Lungs are clear. There is no evidence of pneumonia or pulmonary edema. PLEURA: No pleural effusion or pneumothorax. HEART AND MEDIASTINUM: The cardiomediastinal silhouette is unremarkable. BONES AND SOFT TISSUES: No acute osseous lesion. Soft tissues are unremarkable. UPPER ABDOMEN: No free air under the diaphragm. IMPRESSION: No acute thoracic abnormality. Signed by: Dr. Brad Monroy M.D. on 08/30/2018 3:51 PM
--- NOTE | 2018-08-30 16:13 | Diagnostic Imaging Report ---
CT BRAIN -[facility] HISTORY: Right arm tingling, right eye twitching; history of stroke COMPARISON: None. TECHNIQUE: Noncontrast axial scans were obtained from skull base to the vertex. Coronal and sagittal reconstructions obtained from the axial data. One or more of the following dose reduction techniques were used: Automated exposure control, adjustment of the mA and/or kV according to patient size, and/or utilization of iterative reconstruction technique. DISCUSSION: Scalp/Skull: Unremarkable. Brain sulci: Overall appropriate for patient's age. Ventricles: Mild dilation of the temporal horn of the left lateral ventricle. Otherwise, unremarkable. Extra-axial spaces: No masses or fluid collections. Mild carotid siphon and vertebral artery calcifications are present. Parenchyma: There is focal loss of nuñez-white differentiation along the lateral left post central gyrus and left inferior parietal lobule. Associated local sulcal effacement is seen in this region. Additional focal juxtacortical hypodensity along the posterior left mesial temporal lobe is associated with local mass effect. Mild periventricular white matter hypodensities are likely chronic microvascular ischemic changes. Otherwise, no hemorrhage is seen. Dural sinuses: No abnormal densities. Sellar/Suprasellar region: Intact. Skull base: Intact. Incidental findings: None. IMPRESSION: 1. Focal loss of nuñez-white differentiation along the left lateral postcentral gyrus and left inferior parietal lobule may be due to acute or subacute ischemia. 2. Focal juxtacortical hypodensity along the posterior left mesial temporal lobe also may be due to evolving acute-subacute ischemia or post-ictal change in the appropriate clinical setting. 3. No acute intracranial hemorrhage. 4. Mild supratentorial chronic microvascular ischemic change. Further evaluation with brain MRI (without and with contrast) is recommended. Signed by: Dr. Lj Okeefe M.D. on 08/30/2018 4:10 PM
--- NOTE | 2018-08-30 17:21 | NUR ---
MOT/FACESHEET FAXED TO [phone] REPORT TO PAMELA FIELDS RN [phone] EMS ALREADY CALLED ON WAY MOT TO ADMIN/REVIEWED BY Omid
--- NOTE | 2018-08-30 17:42 | NUR ---
EMS STATES ANOTHER 20 MINS FOR ARRIVAL.
--- NOTE | 2018-08-30 18:06 | NUR ---
REPORT TO EMS
== END 2018-08-30 18:09 | disposition short-term general hospital (02) ==
LOC: FSED 14:58
DX: R20.2 Paresthesia of skin (principal); I63.9 Cerebral infarction, unspecified; G40.109 Localization-related (focal) (partial) symptomatic epilepsy and epileptic syndromes with simple partial seizures, not intractable, without status epilepticus; E78.5 Hyperlipidemia, unspecified; Z87.891 Personal history of nicotine dependence
CPT/HCPCS: 70450; 71046; 83518; 87400; 93005; 99284